=== PATIENT | male | born 1945 | race Caucasian/White ===

== ENCOUNTER → 2020-02-01 09:36 | Outpatient (CLI) | payer SELFPAY ==
--- NOTE | ~2020-02-01 | XR_ITS ---
EXAMINATION: XR cervical spine 4-5V EXAM DATE: 02/01/2020 10:33 INDICATION: Low back pain. Cervical spine surgery 3 years ago. TECHNIQUE: Cervical spine frontal, lateral, lateral swimmers, and open-mouth odontoid projections. There is no prior study for comparison. FINDINGS: Hardware along right mid lumbar lamina. Moderate disc disease from C3 through C7. Overall moderate cervical arthropathy. Prevertebral soft tissue and pre-dens space are within normal limits. Lung apices unremarkable. IMPRESSION: Moderate cervical spondylosis. Reviewed, dictated and finalized at location A.
--- NOTE | ~2020-02-01 | XR_ITS ---
EXAMINATION: XR lumbar spine 2-3V EXAM DATE: 02/01/2020 10:33 INDICATION: Low back pain. TECHNIQUE: Lumber spine frontal, lateral, lateral L5-S1 projections for interpretation. There is no prior study for comparison. FINDINGS: Some limitations from underpenetration. There is moderate disc disease L1-2, L3-4 and L4-5, moderate to severe at L5-S1. Probably moderate lumbar facet arthropathy. Small endplate bridging ost eophytes. Paraspinal soft tissue is unremarkable. There are arterial calcifications, arteriosclerosis . IMPRESSION: Overall moderate lumbar spondylosis. Reviewed, dictated and finalized at location A.
== END ==
DX: M54.5 Low back pain (principal); M47.812 Spondylosis without myelopathy or radiculopathy, cervical region; M47.816 Spondylosis without myelopathy or radiculopathy, lumbar region
CPT/HCPCS: 72050; 72100

== ENCOUNTER 2020-07-09 14:43 | Observation (INO) | payer MEDICARE, SELFPAY ==
[2020-07-09] VITALS (38 sets, daily range): BP systolic 112–140; BP diastolic 56–85; PULSE 64–84; RESP 12–20; TEMP 36.2–36.7; O2SAT 95–100; BMI 28.9
--- NOTE | ~2020-07-09 | US_ITS ---
EXAMINATION: US carotid duplex BI EXAM DATE: 07/10/2020 08:50 INDICATION: Syncope. TECHNIQUE: Grayscale, color and pulsed Doppler images of the cervical carotid arteries were obtained . The degree of vessel stenosis is placed in one of the following categories: normal, <50% stenosis, 50-69% stenosis, >=70% stenosis but less than near-occlusion, near-occlusion, or occlusion. Note that percent stenosis relative to normal distal artery lumen diameter is indirectly measured from velocit y measurements as described by Bolivar, et al. Radiology 2003; 229:340-346. There is no prior study fo r comparison. FINDINGS: RIGHT SIDE: Right common carotid artery peak systolic velocity (PSV in cm/s): 66 Right bulb/internal carotid artery peak systolic velocity (PSV in cm/s): 56 Right internal carotid artery end diastolic velocity (EDV in cm/s): 15 Right ICA/CCA peak systolic ratio: 0.8 Right external carotid artery peak systolic velocity (PSV in cm/s): 103 Right vertebral artery antegrade flow: yes There is mild carotid bulb plaque. Velocity and Doppler waveforms in the common and internal carotid arteries is normal. LEFT SIDE: Left common carotid artery peak systolic velocity (PSV in cm/s): 80 Left bulb/internal carotid artery peak systolic velocity (PSV in cm/s): 61 Left internal carotid artery end diastolic velocity (EDV in cm/s): 22 Left ICA/CCA peak systolic ratio: 0.8 Left external carotid artery peak systolic velocity (PSV in cm/s): 87 Left vertebral artery antegrade flow: yes There is mild carotid bulb plaque. Velocity and Doppler waveforms in the common and internal carotid arteries is normal. IMPRESSION: 1. Normal right internal carotid artery. 2. Less than 50 percent stenosis in the left internal carotid artery. Reviewed, dictated and finalized at location B. CLUB HEAD FORMER
--- NOTE | ~2020-07-09 | XR_ITS ---
XR chest 1V DATE: 07/09/2020 15:26 INDICATION: Shortness of breath, syncope. History of COPD, hypertension. TECHNIQUE: AP chest COMPARISON: 09/02/2018 2 view chest FINDINGS: Normal heart size. There is aortic calcification and mild tortuosity. No hilar or mediastin al enlargement. No pulmonary infiltrate or consolidation, pleural effusion or pulmonary vascular congestion or pneumo thorax. Diffuse osteopenia. Degenerative spurring of the thoracic spine. IMPRESSION: No active cardiopulmonary disease Reviewed, dictated and finalized at location A. ICAL ENGINEERING TECHNICIAN
--- NOTE | ~2020-07-09 | CT_ITS ---
EXAMINATION: CT brain wo con DATE: 07/09/2020 15:21 INDICATION: Syncope TECHNIQUE: Computed tomography (CT) of the head was performed without intravenous contrast. The mA wa s adjusted according to patient size. Iterative reconstruction technique was employed. Exam dose: 60 5.33 mGy-cm total exam DLP. COMPARISON: None FINDINGS: Bilateral carotid siphon and right supraclinoid internal carotid artery calcifications. There is nonspecific diminished attenuation of the subcortical and periventricular cerebral white mat ter, likely due to chronic small vessel ischemic changes. There is central and cortical cerebral volume loss and cerebellar volume loss. No intracranial mass lesion or hemorrhage or cerebrovascular accident is evident. No midline shift or mass effect effect. No subdural or epidural hematoma. There is a small fluid level or mild posterior new comparison thickening at the left maxillary sinus. The paranasal sinuses and mastoid air cells are otherwise unremarkable. No fracture or bone destruction of the cranial vault. IMPRESSION: Cerebral atherosclerosis and chronic small vessel ischemic changes of cerebral white mat ter Cerebral and cerebellar atrophy No acute intracranial finding Reviewed, dictated and finalized at Location A. Reviewed, dictated and finalized at location A. INING MANAGER IMPRESSION: Cerebral atherosclerosis and chronic small vessel ischemic changes of cerebral white matter Cerebral and cerebellar atrophy No acute intracranial finding
--- NOTE | 2020-07-09 14:52 | ECG_ITS ---
Measurements Intervals [place] Rate: 59 P: 70 WI: 177 QRS: 16 QRSD: 100 T: 72 QT: 405 QTc: 403 Interpretive Statements SINUS BRADYCARDIA INCOMPLETE RIGHT BUNDLE BRANCH BLOCK BORDERLINE ECG Electronically Signed On 07-09-2020 14:58:29 PUBLIC IMPROVEMENT INSPECTOR by Med Davis D.O.
--- NOTE | 2020-07-09 15:14 | ED.SYNCOPE ---
HPI - Syncope General Chief Complaint: Syncope Stated Complaint: syncope Time Seen by Provider: 07/09/20 14:49 Source: patient Mode of arrival: EMS Limitations: no limitations History of Present Illness HPI narrative: Patient is a 74 year old male with history of hypertension and hyperlipidemia who presents for EMS for syncopal episode. He states he was sitting down at [employer] when he developed nausea, dizziness, blurred vision and diaphoresis. He states his told him his eyes were rolling to the back of his head. He was given some glucose for possible hypoglycemia, and he states he started feeling better afterwards. He has not eaten all day. He states he normal has apple at breakfast and eats popcorn throughout the day but he has not eaten any. He denies chest pain or palpitations. He states he felt like he couldn't breath so he took down his mask. Prior to going to [employer], he states he felt fine. His only complaint now is mild nausea. He states he feels 98% better. He denies history of diabetes or hypoglycemia. Related Data Allergies Allergy/AdvReac Type Severity Reaction Status Date / Time Penicillins Allergy Unknown UNKNOWN Verified 07/09/20 15:22 Review of Systems Review of Systems: All systems reviewed & are unremarkable except as noted in HPI and below Constitutional: Constitutional: Denies chills and Denies fever(s) Cardiovascular: Cardiovascular: Denies chest pain and Denies radiating jaw, neck or arm pain Respiratory: Respiratory: Denies cough and Reports dyspnea Gastrointestinal: Gastrointestinal: Denies abdominal pain, Denies diarrhea, Reports nausea and Denies vomiting Neurologic: Reports syncope [facility] Past Medical History Medical History (Updated 07/09/20 @ 19:14 by Jeanne Campbell MD) Hyperlipidemia Hypertension Surgical History Surgical History (Updated 07/09/20 @ 15:22 by Jeanne Campbell MD) H/O cervical spine surgery History of ankle surgery Social History Social History (Updated 07/09/20 @ 15:23 by Jeanne Campbell MD) Smoking status: Never smoker Exam Const: General: no acute distress and alert Orientation/consciousness: patient oriented x3 HENMT: Head: normocephalic and atraumatic Face and sinus: face symmetric Eyes: EOM: EOMs intact bilaterally Chest: Chest palpation & inspection: normal inspection of the chest Resp: Effort & Inspection: normal respiratory effort and no retractions Auscultation: clear to auscultation bilaterally Cardio: Rate: regular rate Rhythm: regular rhythm Heart sounds: no murmurs GI: GI Palp: Yes Soft to palpation, No Tenderness to palpation present (GI) and No Guarding due to palpation present (GI) Auscultation: normal bowel sounds Skin: General skin exam: normal color Rashes: no rashes Neuro: General: patient oriented x3 and moves all extremities Course Reevaluation(s) Reevaluation #1: I discussed with patient that i recommend observation due to syncopal episode. It may be due to hypoglycemia but we do not have an accucheck to state that for sure. He understands he will be monitored for arrhythmia Date: 07/09/20 Time: 15:30 Consultations Consultation #1: I Discussed case with Princess Aj who accepts patient for observation given syncopal episode Date: 07/09/20 Time: 15:15 Vital Signs Vital signs: Vital Signs Temperature 98.0 F 07/09/20 14:42 Pulse Rate 64 07/09/20 14:42 Respiratory Rate 18 07/09/20 14:42 Blood Pressure 118/79 07/09/20 14:42 Pulse Oximetry 98 07/09/20 14:42 Temperature 98.0 F 07/09/20 14:42 Pulse Rate 70 07/09/20 18:49 Respiratory Rate 13 07/09/20 18:49 Blood Pressure 117/56 L 07/09/20 18:49 Pulse Oximetry 98 07/09/20 18:49 MDM - Syncope Lab Data Attestation: I reviewed the patient's lab results. Result diagrams: 07/09/20 15:51 07/09/20 15:51 Labs: Lab Results 07/09/20 07/09/20 07/09/20 Range/Units 15:51 15:51 15:5
[2020-07-09] MEDS: ONDANSETRON INJ 4 MG/2 ML VIAL IV PUSH (15:42)
[2020-07-09 15:58] LABS: Basophils Absolute Auto 0.1 K/mm3 (0.0-0.1); Basophils Percent Auto 0.5 % (0.2-1.2); Eosinophils Absolute Auto 0.2 K/mm3 (0-0.3); Eosinophils Percent Auto 2.2 % (0-4.4); Hematocrit 43.3 % (42.0-52.0); Immature Granulocyte Absolute 0.02 K/mm3 (0.00-0.031); Immature Granulocyte Percent A 0.2 % (0-0.5); Lymphocytes Absolute Auto 1.29 K/mm3 (0.9-3.2); Lymphocytes Percent Auto 14.1 % (18.3-44.2); Mean Corpuscular HGB Conc 34.6 g/dl (32-36); Mean Corpuscular Hemoglobin 31.6 pg (26-34); Mean Corpuscular Volume 91.2 fl (80-100); Mean Platelet Volume 9.3 fl (7.4-10.4); Monocytes Absolute Auto 0.6 K/mm3 (0.1-0.6); Monocytes Percent Auto 6.3 % (2.6-8.5); Neutrophils Percent Auto 76.7 % (45.5-73.1); Platelet Count Result 261 k/mm3 (150-375); Red Blood Count 4.75 M/mm3 (4.6-6.20); Red Cell Distribution Width 14.5 % (11.5-14.5); White Blood Count 9.2 K/mm3 (4.5-10.0)
[2020-07-09 16:01] LABS: Add Urine Microscopic? YES; Amorphous Sediment Urine Few; Appearance Urine Cloudy (Clear); Bilirubin Urine Negative (Negative); Blood Urine Negative (Negative); Color Urine Yellow (Yellow); Glucose Urine UA Negative (Negative); Ketones Urine Negative (Negative); Leukocyte Esterase Ur Negative LEU/UL (Negative); Mucus Urine Rare /lpf; Nitrate Urine Negative (Negative); Protein Urine Negative (Negative); RBC Urine 0-2 /hpf (0-2); Specific Grav Ur 1.013 (1.001-1.035); Squamous Epithelial Cell Urine Rare /hpf (Few); WBC Urine 0-3 /hpf
[2020-07-09 16:08] LABS: INR 0.9; Partial Thromboplastin Time 28.3 SECONDS (22.3-36.8); Prothrombin Time 12.9 Seconds (11.1-14.7)
[2020-07-09 16:11] LABS: Alanine Aminotransferase 32 U/L (4-50); Alkaline Phosphatase 81 U/L (38-126); Anion Gap 2 mmol/L (8-16); Aspartate Amino Transferase 32 U/L (17-59); Bilirubin,Total 0.9 mg/dL (0.2-1.3); Blood Urea Nitrogen 11 mg/dL (9-20); Calcium 8.9 mg/dL (8.4-10.2); Carbon Dioxide 27 mmol/L (22-30); Chloride 100 mmol/L (98-107); Estimated CRCL calculation 86 ml/min; Estimated Glomerular Filt Rate > 60; Glucose 127 mg/dL (75-110); Magnesium 1.7 mg/dL (1.6-2.3); Sodium 129 mmol/L (137-145)
[2020-07-09 16:22] LABS: Troponin I < 0.012 ng/mL (0.000-0.034)
--- NOTE | 2020-07-09 19:57 | ADMGEN ---
This patient, Domenico Spangler, was admitted to Medical Room 258-01. Patient/family oriented to hospital policies and general routines including ID bracelet, bed and alarms, visiting hours, pain management, procedures, bathroom and other care routines, personal items, smoking policy, room service/diet, and visiting hours. Information on how to activate the Rapid Response Team has been discussed. Patient/Family are encouraged to report perceived risks to care and to ask questions if they do not understand what they are told or what they should do.
[2020-07-09] MEDS: SODIUM CHLORIDE 0.9% IV 1,000 ML 125 ML IV CONT (21:25)
[2020-07-09 21:58] LABS: Glucose Point of Care 101 (65-105)
[2020-07-10] VITALS (8 sets, daily range): BP systolic 129–149; BP diastolic 73–88; PULSE 55–88; RESP 16–18; TEMP 36.1–36.3; O2SAT 98–99
--- NOTE | 2020-07-10 | PM.IMHP ---
H&P: HPI History of Present Illness Date/Time: 07/09/20 23:40 Chief Complaint: presyncopal episode today Narrative: This is a pleasant 74 year old male with known history of HTN and hyperlipidemia who presented to the hospital today after feeling woozy and having a presyncopal episode earlier today at [employer]. He didn't eat today and he was sitting at [employer] listening to a boring sermon when suddenly he became dizzy, diaphoretic, and woozy. He remarks that his vision went out of focus for a few moments and his noticed that he had become pale appearing and his eyes seemed to roll back in his head. He denies actually passing out, falling, or having any seizure like activity. Afterwards his identification printing machine setter gave him 2 glucose tablets to eat. The patient has no previous history of passing out and denies any recent head injury. The patient denied any chest pain, palpitations, shortness of breath, coughing, fevers, chills, abdominal pain, vomiting, diarrhea, dysuria, or rectal bleeding. EMS found that his blood glucose was 100 mg/dl after he had eaten the 2 tabs of glucose. The patient was evaluated in the ER tonight and routine labs, EKG, CXR were all unremarkable. The patient was admitted for observation. No other complaints. Review of Systems Review of Systems: All systems reviewed & are unremarkable except as noted in HPI and below PMFSH Past Medical History Medical History Hyperlipidemia Hypertension Surgical History Surgical History H/O cervical spine surgery History of ankle surgery Family History Family History Mother Diabetes mellitus Father Post-trauma syndrome Heart disease Father No problems noted. Social History Social History Years smoked: 60 Smoking status: Former smoker Tobacco type: cigarettes Alcohol intake: never Substance use: never Substance use type: does not use Gender identity (if verbalized by the patient): Male Spiritual care concerns: No Meds Home Medications and Allergies Home Medications Medication Instructions Recorded Confirmed Type aspirin 325 mg PO DAILY 07/09/20 07/09/20 History atorvastatin 40 mg PO DAILY 07/09/20 07/09/20 History lisinopril-hydrochlorothiazide 0.5 tablet PO DAILY 07/09/20 07/09/20 History Allergies Allergy/AdvReac Type Severity Reaction Status Date / Time Penicillins Allergy Unknown UNKNOWN Verified 07/09/20 15:22 Vital Signs Vital Signs - 24 hr 07/09/20 14:42 07/09/20 14:48 07/09/20 14:49 Temperature 36.7 C Pulse Rate 64 66 68 Respiratory Rate 18 19 Blood Pressure 118/79 118/79 Pulse Oximetry 98 97 99 07/09/20 14:51 07/09/20 15:00 07/09/20 15:01 Temperature Pulse Rate 68 66 68 Respiratory Rate 15 14 Blood Pressure 120/75 Pulse Oximetry 07/09/20 15:28 07/09/20 15:38 07/09/20 15:45 Temperature Pulse Rate Respiratory Rate Blood Pressure Pulse Oximetry 97 99 98 07/09/20 16:03 07/09/20 16:05 07/09/20 16:06 Temperature Pulse Rate 69 67 83 Respiratory Rate 14 Blood Pressure 132/68 132/68 133/81 Pulse Oximetry 100 98 07/09/20 16:07 07/09/20 16:11 07/09/20 16:16 Temperature Pulse Rate 74 65 66 Respiratory Rate 14 15 16 Blood Pressure 126/70 133/81 Pulse Oximetry 99 98 99 07/09/20 16:22 07/09/20 16:30 07/09/20 16:41 Temperature Pulse Rate 71 74 68 Respiratory Rate 14 16 13 Blood Pressure 112/62 112/66 Pulse Oximetry 100 99 100 07/09/20 16:45 07/09/20 17:00 07/09/20 17:15 Temperature Pulse Rate 64 65 64 Respiratory Rate 16 13 12 Blood Pressure Pulse Oximetry 98 100 99 07/09/20 17:31 07/09/20 17:41 07/09/20 17:45 Temperature Pulse Rate 66 71 73 Respiratory Rate 17 18 13 Blood Pressure 140/85 Pulse Oximetry 98 99 99
[2020-07-10] MEDS: SODIUM CHLORIDE 0.9% IV 1,000 ML 125 ML IV CONT (05:28)
[2020-07-10 05:38] LABS: Basophils Absolute Auto 0.1 K/mm3 (0.0-0.1); Basophils Percent Auto 0.8 % (0.2-1.2); Eosinophils Absolute Auto 0.3 K/mm3 (0-0.3); Eosinophils Percent Auto 4.6 % (0-4.4); Hematocrit 39.6 % (42.0-52.0); Hemoglobin 13.7 g/dL (14.0-18.0); Immature Granulocyte Absolute 0.02 K/mm3 (0.00-0.031); Immature Granulocyte Percent A 0.3 % (0-0.5); Lymphocytes Absolute Auto 1.83 K/mm3 (0.9-3.2); Lymphocytes Percent Auto 28.8 % (18.3-44.2); Mean Corpuscular HGB Conc 34.6 g/dl (32-36); Mean Corpuscular Hemoglobin 31.3 pg (26-34); Mean Corpuscular Volume 90.4 fl (80-100); Mean Platelet Volume 9.4 fl (7.4-10.4); Monocytes Absolute Auto 0.8 K/mm3 (0.1-0.6); Neutrophils Absolute Auto 3.4 K/mm3 (1.3-6.7); Neutrophils Percent Auto 53.5 % (45.5-73.1); Platelet Count Result 249 k/mm3 (150-375); Red Blood Count 4.38 M/mm3 (4.6-6.20); Red Cell Distribution Width 14.2 % (11.5-14.5); White Blood Count 6.4 K/mm3 (4.5-10.0)
[2020-07-10 05:46] LABS: Potassium 4.1 mmol/L (3.4-5.0)
[2020-07-10 05:52] LABS: Anion Gap 3 mmol/L (8-16); Blood Urea Nitrogen 9 mg/dL (9-20); Calcium 8.5 mg/dL (8.4-10.2); Carbon Dioxide 27 mmol/L (22-30); Chloride 105 mmol/L (98-107); Estimated CRCL calculation 82 ml/min; Estimated Glomerular Filt Rate > 60; Glucose 97 mg/dL (75-110); Sodium 135 mmol/L (137-145)
--- NOTE | 2020-07-10 06:00 | ECHO_ITS ---
Patient Info Name: Domenico Spangler Age: 74 years : 1945 Gender: Male Ht: 71 in Wt: 208 lbs BSA: 2.19 m2 HR: 73 bpm BP: 130 / 69 mmHg Heart Rhythm: Sinus Rhythm Technical Quality: Good Exam Date: 07/10/2020 9:34 AM Exam Location: [facility] Patient Status: Inpatient Admit Date: 07/09/2020 Staff Ordering Physician: Jeanne Campbell MD Senior Portfolio Manager: Damien Payton RDCS Attending Provider: Clarisa Avina PA-C Referring Physician: Adrian MENA; Exam Type: CA echo doppler color flow Study Info Indications R55 - Syncope and collapse Complete two-dimensional, color flow and Doppler transthoracic echocardiogram is performed. Strain analysis performed. History/Risk Factors Syncope; hypertension. Summary 1. Complete two-dimensional, color flow and Doppler transthoracic echocardiogram is performed. 2. Technically difficult study with limited views. 3. Left ventricular chamber dimension is normal. 4. Left ventricular systolic function is normal, estimated at 65-70%. 5. Right atrial chamber dimension is mildly enlarged. 6. There is mild aortic valve sclerosis. Left Ventricle Left ventricular chamber dimension is normal. Left ventricular systolic function is normal, estimated at 65-70%. The left ventricular diastolic function is grade I diastolic dysfunction. Right Ventricle Right ventricular chamber dimension is normal. Left Atria Left atrial chamber dimension is normal. Right Atria Right atrial chamber dimension is mildly enlarged. Aortic Valve The aortic valve is trileaflet. There is mild aortic valve sclerosis. Pulmonic Valve The pulmonic valve is not well visualized. Mitral Valve The mitral valve has normal leaflets. Tricuspid Valve The tricuspid valve leaflets are normal. There is mild tricuspid valve regurgitation. Pericardium/Pleural The pericardium appears normal. Aorta The aortic root size at the sinus of Valsalva is normal. Left Ventricular Outflow Tract Name Value Normal LVOT 2D LVOT Diameter 2.1 cm LVOT Doppler LVOT Peak Gradient 6 mmHg LVOT Mean Gradient 3 mmHg LVOT VTI 28 cm LVOT VTI/AV VTI Ratio 0.7 LVOT Stroke Volume 94 ml LVOT CO 7.2 l/min LVOT CI 3.3 l/min/m2 Mitral Valve Name Value Normal MV Doppler MV [employer] [place] 224 cm/s2 MV PHT 94 ms MV Area (PHT) 2.4 cm2 4.0-5.0 MV Diastolic Function MV E Peak Velocity 72 cm/s MV A Peak Velocity 94 cm/s
[2020-07-10 07:33] LABS: Glucose Point of Care 102 (65-105)
[2020-07-10] MEDS: ASPIRIN 325 MG TABLET PO (09:18)
[2020-07-10] MEDS: ATORVASTATIN 40 MG TABLET PO (09:18)
[2020-07-10 11:41] LABS: Glucose Point of Care 88 (65-105)
--- NOTE | 2020-07-10 16:51 | PM.DS ---
DS: Admitting Diagnosis Admitting Diagnosis Admitting Diagnosis: Pre-syncope DS: Discharge Diagnosis Discharge Diagnosis (1) Pre-syncope: Code(s): R55 - Syncope and collapse Status: Acute Assessment and Plan: Discharge Summary (Date of service 07/10/20): Mr. Spangler is a 74 year old male with known history of HTN and hyperlipidemia who presented to the emergency department 07/09/20 after feeling woozy and having a presyncopal episode earlier that morning at [facility]. He noted that he had not eaten all day and he was listening to the sermon at [facility] when he suddenly became dizzy, diaphoretic, and woozy. He noted that his vision went out of focus for a few moments and his noticed that he had become pale appearing and his eyes seemed to roll back in his head. He denies actually passing out, falling, or having any seizure like activity. Afterwards his pipe fitter maintenance gave him 2 glucose tablets to eat. EMS found that his blood glucose was 100 mg/dl after he had eaten the 2 tabs of glucose. In the ER, CXR demonstrated no acute disease, CT brain demonstrated cerebral atherosclerosis and chronic small vessel ischemic changes of cerebral white matter with cerebral and cerebellar atrophy and no acute intracranial finding, EKG demonstrated sinus bradycardia and incomplete right bundle branch block. The patient was admitted for observation. Carotid doppler US demonstrated no right ICA stenosis and <50% left ICA stenosis. Echocardiogram demonstrated normal LV chamber dimension, normal LV systolic function w/ EF 65-70%, mild right atrial enlargement, and mild aortic valve sclerosis. Telemetry monitoring demonstrated sinus rhythm. Orthostatic BP readings were negative for orthostatic hypotension. The episode was most likely secondary to hypoglycemia and he was advised not to miss meals. Additional consideration includes reflex-mediated vasovagal pre-syncope given classic prodrome. I also encouraged him to stay hydrated and take precautions to avoid falls. He was discharged with a holter monitor and encouraged to follow-up with his PCP for results. Worrisome signs and symptoms which would warrant return to the emergency department were discussed and he verbalized understanding. He was discharged in hemodynamically stable condition on the evening of 07/10/20. (2) Hyponatremia: Code(s): E87.1 - Hypo-osmolality and hyponatremia Status: Acute Assessment and Plan: Sodium was 129 on arrival to the emergency department and improved to 135 with IV fluids. HCTZ was held initially but resumed at discharge as hyponatremia was felt more likely secondary to dehydration as opposed to HCTZ. Recommend outpatient follow-up with BMP and consideration of discontinuing HCTZ if sodium levels drop in the future. (3) Hypertension: Qualifiers: Hypertension type: unspecified Qualified Code(s): I10 - Essential (primary) hypertension Code(s): I10 - Essential (primary) hypertension Status: Chronic Assessment and Plan: Blood pressures were reasonable. Lisinopril-HCTZ was resumed at discharge. (4) Hyperlipidemia: Qualifiers: Hyperlipidemia type: unspecified Qualified Code(s): E78.5 - Hyperlipidemia, unspecified Code(s): E78.5 - Hyperlipidemia, unspecified Status: Chronic Assessment and Plan: Atorvastatin was continued. DS: Summary Hospital Course Reason for hospitalization: Near syncope Hospital Course: As above. Status at Discharge Functional status at discharge: independent ambulation Overall status at discharge: patient is back to baseline Time Spent with Patient Time attestation: Total time spent providing and/or coordinating discharge services: 35 minutes Exam Narrative: Exam Narrative: Vitals at presentation: Temp Pulse Resp BP Pulse Ox 98.0 F 64 18
--- NOTE | 2020-07-13 15:09 | WPDHOLTEREM ---
Holter/Event Monitor Holter/Event Monitor Date of procedure: 07/13/20 Procedure Type: 48 hour Holter monitor Diagnosis: syncope Indications: syncope Image/Tracing Quality: good Finding: this is a 48 hour Holter monitor in which underlying rhythm was sinus with an average heart rate of 68 beats per minute minimum 46 beats per minute occurring at 4:20 a.m. and a maximum 117 beats per minute occurring at 7:41 a.m.. There was no ventricular ectopy noted throughout the study. One hundred nine supraventricular ectopic beats were noted in which there were 4 atrial runs longest of which was 10 beats in duration occurring at 2:27 a.m.. There were 2 atrial pairs and 83 isolated premature atrial contractions. There is no atrial fibrillation or atrial flutter, prolonged pauses or high-grade AV blocks identified. There were no symptoms returning conjunction with this study. Conclusion: Underlying sinus rhythm without prolonged pauses or high-grade AV blocks. Occasional asymptomatic runs of atrial tachycardia without atrial fibrillation or atrial flutter. Clinical correlation advised.
== END 2020-07-10 17:35 | disposition home or self-care (01) ==
LOC: ANHED 17:40 → ANH2MED 18:28
PROVIDERS: Physician Assistant; Admitting Provider Internal Medicine; Emergency Provider General Practice; PCP Family Medicine Adolescent Medicine; Visit Provider Family Medicine
DX: R55 Syncope and collapse (principal); E87.1 Hypo-osmolality and hyponatremia; I35.8 Other nonrheumatic aortic valve disorders; I65.22 Occlusion and stenosis of left carotid artery; I10 Essential (primary) hypertension; E78.5 Hyperlipidemia, unspecified; Z87.891 Personal history of nicotine dependence
CPT/HCPCS: 36415; 70450; 71045; 80048; 80053; 81001; 82948; 83735; 84484; 85025; 85610; 85730; 93005; 93225; 93226; 93306; 93880; 96361; 96374; 99285; A9270; G0378; J2405; J7030

== ENCOUNTER 2021-11-22 15:03 | Inpatient (IN) | payer MEDICARE, SELFPAY ==
[2021-11-22] VITALS (25 sets, daily range): BP systolic 94–153; BP diastolic 49–75; PULSE 70–86; RESP 12–16; TEMP 36.3–37.1; O2SAT 92–100; BMI 28.2
--- NOTE | ~2021-11-22 | XR_ITS ---
XR chest 1V DATE: 11/22/2021 15:38 INDICATION: Fall today. Comminuted intertrochanteric right hip fracture. Preoperative evaluation. TECHNIQUE: AP chest COMPARISON: 07/09/2020 AP chest FINDINGS: Normal heart size. Is aortic calcification and mild unfolding. No hilar or mediastinal enla rgement. No pulmonary infiltrate or consolidation, pleural effusion or pulmonary vascular congestion or pneumo thorax. Osteopenia. Degenerative spurring of the thoracic spine. IMPRESSION: No active cardiopulmonary disease Aortic atherosclerosis Reviewed, dictated and finalized at location A.
--- NOTE | ~2021-11-22 | US_ITS ---
EXAMINATION: US carotid duplex BI DATE: 11/23/2021 09:05 INDICATION: Carotid bruit. Preop. TECHNIQUE: Grayscale, color Doppler, and pulsed Doppler images of the cervical carotid arteries were obtained. The degree of vessel stenosis is placed in one of the following categories: normal, <50%, 5 0-69%, >=70% but less than near-occlusion, near-occlusion, or total occlusion. Note that percent sten osis relative to normal distal artery lumen diameter is indirectly measured from velocity measurement s as described by Bolivar, et al. Radiology 2003; 229:340-346. Notes: Normal: Peak systolic velocity <125 centimeters/sec and no plaque <50%. Peak systolic velocity <125 ( EDV <40; ICA/CCA PSV ratio <2.0; used these factors only a tandem lesions or low cardiac output or co ntralateral disease) 50-69 %: PSV 125-230 (EDV 40-100; ratio 2-4) >= 70% but less than near occlusion: PSV greater than 230 (EDV > 100; ratio> 4.0) Near Occlusion: PSV that is variable; markedly narrowed lumen Occlusion: Absent flow on color/spectral Doppler and no lumen on pierre scale. COMPARISON: None. FINDINGS: RIGHT: The right common carotid artery (CCA) peak systolic velocity (PSV) is 79 cm/s. The right internal car otid artery (ICA) PSV is 54 cm/s. The right ICA end-diastolic velocity (EDV) is 10 cm/s. The right IC A/CCA PSV ratio is 0.7. The external carotid artery (ECA) PSV is 101 cm/s. There is antegrade flow in the right vertebral artery. LEFT: The left CCA PSV is 74 cm/s. The left ICA PSV is 61 cm/s. The left ICA EDV is 13 cm/s. The left ICA/C CA PSV ratio is 0.8. The ECA PSV is 97 cm/s. There is antegrade flow in the left vertebral artery. IMPRESSION: 1. Less than 50% stenosis in the right internal carotid artery by sonographic criteria. 2. Less than 50% stenosis in the left internal carotid artery by sonographic criteria. Reviewed, dictated and finalized at location A. IMPRESSION: 1. Less than 50% stenosis in the right internal carotid artery by sonographic c caryeria. 2. Less than 50% stenosis in the left internal carotid artery by sonographic cr kike.
--- NOTE | ~2021-11-22 | XR_ITS ---
XR hip RT 2V w AP pelvis DATE: 11/22/2021 15:38 INDICATION: Fall today. External rotation and foreshortening of right leg TECHNIQUE: AP pelvis. AP and lateral views of right hip COMPARISON: None FINDINGS: There is a comminuted intertrochanteric fracture of the right hip with varus deformity. No pelvic fracture is noted. The pubic symphysis and sacroiliac joints are intact. Hip joint spaces are symmetric and relatively preserved. There is a prominent amount of fecal material in the colon. IMPRESSION: Comminuted intertrochanteric right hip fracture Reviewed, dictated and finalized at location A.
--- NOTE | ~2021-11-22 | XR_ITS ---
EXAMINATION: XR surgery orthopedic DATE: 11/24/2021 11:05 CDT INDICATION: RT IT NAIL . TECHNIQUE: 4 fluoroscopic images of the right hip were obtained during right intertrochanteric nail p lacement performed by the surgeon. I was not present in the operating room. Fluoroscopy exposure time was 406.2 seconds. Cumulative dose was 137.2 mGy. COMPARISON: None FINDINGS: 4 spot views demonstrate IT nail fixation of the abdomen intertrochanteric right hip fracture. IMPRESSION: Fluoroscopic documentation of right intertrochanteric nail placement. Reviewed, dictated and finalized at location K.
--- NOTE | 2021-11-22 15:44 | ECG_ITS ---
Measurements Intervals [place] Rate: 72 P: 75 VT: 176 QRS: 29 QRSD: 94 T: 72 QT: 397 QTc: 436 Interpretive Statements SINUS RHYTHM WITHIN NORMAL LIMITS COMPARED TO ECG 07/09/2020 14:48:36 NO SIGNIFICANT CHANGE Electronically Signed On 11-23-2021 14:27:09 CDT by Nakul Ritter M.D.
--- NOTE | 2021-11-22 15:52 | ED.FALL ---
HPI - Fall General Chief Complaint: Fall Stated Complaint: fall, Hip pain Time Seen by Provider: 11/22/21 15:08 History of Present Illness HPI Narrative: 76-year-old male presents to the ER today for evaluation of right hip pain after falling ground-level. He was walking out to get the mail and swatted at a wasp and lost his balance and fell over on his right side. He was not able to get up and had significant pain in the right hip. A neighbor happened to be outside and was able to call EMS right away. He was noted to have shortening and external rotation of the right leg. His pain is fairly controlled as long as he is not moving. He does get intermittent muscle cramps in his right hip which are very painful. Past medical history significant for hypertension and hyperlipidemia. Related Data Home Medications Medication Instructions Recorded Confirmed aspirin 325 mg tablet 325 mg PO DAILY 07/09/20 11/22/21 atorvastatin 40 mg tablet 40 mg PO DAILY 11/22/21 11/22/21 Allergies Allergy/AdvReac Type Severity Reaction Status Date / Time Penicillins Allergy Unknown UNKNOWN Verified 11/22/21 18:02 Review of Systems Review of Systems: CONSTITUTIONAL: Denies fever, chills, or sweats. EYES: Denies visual changes, redness, or discharge. ENT: Denies rhinorrhea, congestion, sore throat, or otalgia. CARDIOVASCULAR: Denies chest pain, palpitations, or edema. RESPIRATORY: Denies cough or dyspnea. GASTROINTESTINAL: Denies abdominal pain, nausea, vomiting, or diarrhea. GENITOURINARY: Denies dysuria or hematuria. SKIN: Denies rash or itching. MUSCULOSKELETAL: As per HPI NEUROLOGIC: Denies headache, numbness, dizziness, or weakness. PSYCHIATRIC: Denies anxiety or depression. [facility], [facility] Past Medical History Medical History Hyperlipidemia Hypertension Pre-syncope Syncope Surgical History Surgical History H/O cervical spine surgery History of ankle surgery Family History Family History Mother Diabetes mellitus Father Post-trauma syndrome Heart disease Father No problems noted. Social History Social History Years smoked: 60 Smoking status: Former smoker Tobacco type: cigarettes Second hand tobacco smoke exposure: No Alcohol intake: never Substance use: never Substance use type: does not use Gender identity (if verbalized by the patient): Male Sexual Orientation (if Verbalized by the Patient): Straight or Heterosexual Spiritual care concerns: No Agree to blood products: Yes Exam Narrative: GENERAL: Well-appearing, well-nourished, and in no acute distress. HEAD: Normocephalic, atraumatic. EYES: PERRLA and EOMI. NECK: Supple. CHEST: Clear to auscultation. No respiratory distress. No wheezes rales or rhonchi HEART: Regular rate and rhythm. No murmur heard. Normal peripheral pulses. ABDOMEN: Soft, nontender, nondistended, normal active bowel sounds. EXTREMITIES: Swelling noted right lateral hip, right leg shortened and externally rotated. SKIN: Warm, dry, no rash. NEURO: No focal deficits. Alert and oriented x3. PSYCH: Normal mood and affect. Course Course Emergency Course: 1615 Discussed with ortho, Dr. Charles, agrees to see patient in consultation, will plan to admit to hospitalist service. Vital Signs Vital signs: Vital Signs Temperature 36.3 C L 11/22/21 14:59 Pulse Rate 72 11/22/21 14:59 Respiratory Rate 16 11/22/21 14:59 Blood Pressure 138/71 11/22/21 14:59 Pulse Oximetry 97 11/22/21 14:59 Temperature 37.0 C 11/22/21 18:07 Pulse Rate 72 11/22/21 18:07 Respiratory Rate 12 11/22/21 18:07 Blood Pressure 153/61 H 11/22/21 18:07 Pulse Oximetry 94 11/22/21 18:07 MDM - Fall Lab Data Attestation: I reviewed t
[2021-11-22 16:19] LABS: Basophils Absolute Auto 0.1 K/mm3 (0.0-0.1); Basophils Percent Auto 0.8 % (0.2-1.2); Eosinophils Absolute Auto 0.2 K/mm3 (0-0.3); Eosinophils Percent Auto 3.2 % (0-4.4); Hemoglobin 13.5 g/dL (14.0-18.0); Immature Granulocyte Absolute 0.04 K/mm3 (0.00-0.031); Immature Granulocyte Percent A 0.5 % (0-0.5); Lymphocytes Percent Auto 16.5 % (18.3-44.2); Mean Corpuscular HGB Conc 33.8 g/dl (32-36); Mean Corpuscular Hemoglobin 30.6 pg (26-34); Mean Corpuscular Volume 90.7 fl (80-100); Monocytes Absolute Auto 0.6 K/mm3 (0.1-0.6); Monocytes Percent Auto 8.8 % (2.6-8.5); Neutrophils Absolute Auto 5.1 K/mm3 (1.3-6.7); Neutrophils Percent Auto 70.2 % (45.5-73.1); Platelet Count Result 222 k/mm3 (150-375); Red Blood Count 4.41 M/mm3 (4.6-6.20); Red Cell Distribution Width 14.7 % (11.5-14.5); White Blood Count 7.3 K/mm3 (4.5-10.0)
[2021-11-22 16:30] LABS: Alanine Aminotransferase 26 U/L (6-50); Alkaline Phosphatase 76 U/L (38-126); Anion Gap 6 mmol/L (8-16); Aspartate Amino Transferase 29 U/L (17-59); Bilirubin,Total 0.8 mg/dL (0.2-1.3); Blood Urea Nitrogen 12 mg/dL (9-20); Calcium 8.2 mg/dL (8.4-10.2); Carbon Dioxide 25 mmol/L (22-30); Chloride 100 mmol/L (98-107); Estimated CRCL calculation 105 ml/min; Estimated Glomerular Filt Rate > 60; Glucose 131 mg/dL (65-110); Potassium 3.6 mmol/L (3.4-5.0); Sodium 131 mmol/L (137-145)
[2021-11-22] MEDS: MORPHINE SULFATE (*CRX) 4 MG/ML INJ IV PUSH ×2 (16:56→18:59)
[2021-11-22] MEDS: ONDANSETRON INJ 4 MG/2 ML VIAL IV PUSH (16:57)
--- NOTE | 2021-11-22 17:15 | PM.IMHP ---
H&P: HPI History of Present Illness Date/Time: 11/22/21 17:15 Chief Complaint: Right hip pain after fall. Narrative: This is a very pleasant 76-year-old male with hypertension and hyperlipidemia presented to the emergency department via EMS from home for evaluation of right hip pain after a fall. Not long prior to arrival he walked outside to get the mail. He noticed a wasp nearby and swatted at it but unfortunately he lost his balance and fell hard onto his right hip. A neighbor happened to be outside at the time and they called EMS as he was unable to get himself up due to the pain. In the emergency department he was found to have a right hip fracture and he is being admitted in this setting. He also sustained a skin tear and abrasion to the right elbow but sustained no other injuries. He denies head trauma and loss of consciousness. There were no antecedent symptoms prior to the fall; it was purely mechanical. He has a chronic left footdrop which he states was not a factor in the fall today. At the time my evaluation he is resting comfortably but he reports that the pain is starting to increase once again. No paresthesias, skin color, or temperature changes distal to the fracture site. Review of Systems Review of Systems: Twelve systems were reviewed. No fever, chills, or sweats. No recent cold or flu symptoms. No history of coronary artery disease. No vertigo. Right carotid bruit noted on exam; no known history of carotid artery stenosis. No exertional chest pain or shortness of breath. No orthopnea, PND, or lower extremity edema. Appetite has been good. No nausea, vomiting, diarrhea, or dysuria. No history of venous thromboembolism. Except as documented, all other systems were reviewed and are negative. [facility] Past Medical History Medical History (Updated 11/22/21 @ 21:35 by Shara Sorto PA-C) Hyperlipidemia Hypertension Surgical History Surgical History (Updated 11/22/21 @ 21:35 by Shara Sorto PA-C) History of ankle surgery (2012) ORIF right ankle trimalleolar fracture with subsequent hardware removal. History of arthroscopy of left knee History of cervical spinal surgery (2017) Description a splint C3 through C6. History of elbow surgery History of vasectomy Family History Family History Mother Diabetes mellitus Father Post-trauma syndrome Heart disease Father No problems noted. Social History Social History (Updated 11/22/21 @ 21:39 by Shara Sorto PA-C) Social History: Surrogate decision maker: Lizzy Spangler, spouse. 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 Spiritual care concerns: No Agree to blood products: Yes Meds Home Medications and Allergies Home Medications Medication Instructions Recorded Confirmed Type aspirin 325 mg tablet 325 mg PO DAILY 07/09/20 11/22/21 History lisinopril 20 0.5 tablet PO DAILY #45 tabs 10/31/21 11/22/21 Rx mg-hydrochlorothiazide 25 mg tablet atorvastatin 40 mg tablet 40 mg PO DAILY 11/22/21 11/22/21 History Allergies Allergy/AdvReac Type Severity Reaction Status Date / Time Penicillins Allergy Unknown UNKNOWN Verified 11/22/21 18:02 Vital Signs Vital Signs - 24 hr 11/22/21 14:59 11/22/21 15:08 11/22/21 15:15 Temperature 97.4 F L Pulse Rate 72 Respiratory Rate 16 Blood Pressure 138/71 Pulse Oximetry 97 98 97 11/22/21 15:16 11/22/21 15:35 11/22/21 15:36 Temperature Pulse Rate 74 Respiratory Rate 16 Blood Pressure 125/64 132/75 Pulse Oximetry 98 98 98 11/22/21 15:37 11/22/21 15:45 11/22/21 1
--- NOTE | 2021-11-22 18:12 | ADMGEN ---
This patient, Domenico Spangler, was admitted to 2 Medical Room 255-01. Patient/family oriented to hospital policies and general routines including ID bracelet, bed and alarms, visiting hours, pain management, procedures, bathroom and other care routines, personal items, smoking policy, room service/diet, and visiting hours. Information on how to activate the Rapid Response Team has been discussed. Patient/Family are encouraged to report perceived risks to care and to ask questions if they do not understand what they are told or what they should do. Report received from RENATA Mcfadden.
[2021-11-22] MEDS: SODIUM CHLORIDE 0.9% IV 1,000 ML 125 ML IV CONT (18:38)
[2021-11-23] VITALS (8 sets, daily range): BP systolic 121–142; BP diastolic 57–73; PULSE 72–108; RESP 14–20; TEMP 36.6–37.3; O2SAT 91–98
[2021-11-23] MEDS: HYDROcodone/acetaminophen (*CRX) 5-325 MG TABLET 1 TAB PO ×2 (00:24→14:37)
[2021-11-23 05:52] LABS: Hematocrit 36.7 % (42.0-52.0); Hemoglobin 12.7 g/dL (14.0-18.0); Mean Corpuscular HGB Conc 34.6 g/dl (32-36); Mean Corpuscular Hemoglobin 30.9 pg (26-34); Mean Corpuscular Volume 89.3 fl (80-100); Mean Platelet Volume 9.5 fl (7.4-10.4); Platelet Count Result 222 k/mm3 (150-375); Red Blood Count 4.11 M/mm3 (4.6-6.20); Red Cell Distribution Width 14.6 % (11.5-14.5); White Blood Count 9.3 K/mm3 (4.5-10.0)
[2021-11-23 06:40] LABS: Anion Gap 4 mmol/L (8-16); Blood Urea Nitrogen 10 mg/dL (9-20); Calcium 8.4 mg/dL (8.4-10.2); Carbon Dioxide 25 mmol/L (22-30); Chloride 100 mmol/L (98-107); Estimated CRCL calculation 95 ml/min; Estimated Glomerular Filt Rate > 60; Glucose 100 mg/dL (65-110); Magnesium 1.7 mg/dL (1.6-2.3); Potassium 4.1 mmol/L (3.4-5.0); Sodium 129 mmol/L (137-145)
[2021-11-23 07:13] LABS: Thyroid Stimulating Hormone Reflex 0.853 uIU/mL (0.465-4.68)
--- NOTE | 2021-11-23 08:00 | ECHO_ITS ---
Patient Info Name: Domenico Spangler Age: 76 years : 1945 Gender: Male Ht: 72 in Wt: 208 lbs BSA: 2.21 m2 HR: 90 bpm BP: 125 / 63 mmHg Technical Quality: Poor Exam Date: 11/23/2021 1:00 PM Exam Location: [facility] Patient Status: Inpatient Admit Date: 11/22/2021 Staff Ordering Physician: Shara Sorto PA-C [employer] Mesh: Aldo Jimenez RDCS, RT Attending Provider: Nakul Velasco MD Referring Physician: Macario MCKENZIE; Exam Type: CA echo doppler color flow Study Info Indications I10 - Essential (primary) hypertension R01.1 - Cardiac murmur, unspecified Complete two-dimensional, color flow and Doppler transthoracic echocardiogram is performed. Strain analysis performed. Summary 1. Complete two-dimensional, color flow and Doppler transthoracic echocardiogram is performed. 2. Technically suboptimal study due to poor sonographic images. 3. Left ventricular chamber dimension is normal. 4. Left ventricular systolic function is normal, estimated at 60-65%. 5. The left ventricular diastolic function is grade I diastolic dysfunction. 6. E/e' 6 is not elevated. 7. Global longitudinal strain is abnormal at -11.6%. Left Ventricle Technically suboptimal study due to poor sonographic images. E/e' 6 is not elevated. Global longitudinal strain is abnormal at -11.6%. Left ventricular chamber dimension is normal. Left ventricular systolic function is normal, estimated at 60-65%. The left ventricular diastolic function is grade I diastolic dysfunction. Right Ventricle Right ventricular systolic function is normal based on normal TAPSE 3.3 cm. Right ventricular chamber dimension is not well visualized. Left Atria Left atrial chamber dimension is normal. Right Atria Right atrial chamber dimension is not well visualized. Aortic Valve The aortic valve is not well visualized. Cannot determine number of aortic valve leaflets. There is no aortic valve stenosis based on valve area and gradients. There is no aortic valve regurgitation. Pulmonic Valve There is no pulmonic regurgitation. Mitral Valve There is no mitral valve stenosis. There is no mitral valve regurgitation. Tricuspid Valve The tricuspid valve leaflets are not well visualized. There is no tricuspid valve regurgitation. Pericardium/Pleural There is no pericardial effusion. Inferior Vena Cava Normal inferior vena cava with >50% collapse upon inspiration consistent with normal right atrial pressure, 5 mmHg. Aorta The aortic root size at the sinus of Valsalva is not well visualized. Left Ventricular Outflow Tract Name Value Normal LVOT 2D LVOT Diameter 2.0 cm LVOT Doppler LVOT Peak Gradient 7 mmHg LVOT Mean Gradient 4 mmHg LVOT VTI 25 cm LVOT VTI/AV VTI Ratio 0.7 LVOT Stroke Volume 82 ml LVOT CO 7.3 l/min LVOT CI 3.3 l/min/m2 Mitral Valve
[2021-11-23] MEDS: MORPHINE SULFATE (*CRX) 2 MG/ML INJ IV PUSH ×2 (10:56→18:25)
--- NOTE | 2021-11-23 14:53 | PM.CNOR ---
Assessment and Plan Assessment and plan (1) Closed intertrochanteric fracture of right femur: Qualifiers: Encounter type: initial encounter Fracture alignment: displaced Qualified Code(s): S72.141A - Displaced intertrochanteric fracture of right femur, initial encounter for closed fracture Code(s): S72.141A - Displaced intertrochanteric fracture of right femur, initial encounter for closed fracture Status: Acute Assessment and Plan: History, exam and radiographs reviewed with the patient and family. The fracture type and injury as well as radiographs discussed with the patient and family. Operative and nonoperative treatment options reviewed.The patient elects for operative treatment. The patients questions were answered. The patient desires operative treatment. Discussed Right Intertrochanteric Nail. Risks of surgery including but not limited to neurovascular damage, wound complications, blood clot, pulmonary embolus, stroke, myocardial infarction, anesthetic risks up to and including were reviewed. Continued pain and possible dysfunction were explained. No guarantees were offered. The patient understands and wishes to proceed. Plan: Right Intertrochanteric Nail by Dr. Jasmine pending medical clearance NPO at midnight. Obtain consent. Pain control. Ice lateral hip. Bedrest. NWB (2) Foot drop, left: Code(s): M21.372 - Foot drop, left foot Status: Acute Assessment and Plan: Left drop foot at baseline. Does not wear brace. Will likely need to use orthotic brace for optimal postoperative PT and to prevent recurrent falls. Additional Plan Radiographs, history and physical reviewed with attending MD and consulted physician, Dr. Heriberto Jasmnie. Agrees with current plan of care. No further recommendations. History of Present Illness HPI Consult date: 11/23/21 Consult reason: fracture (Right Hip ) and low back pain Chief complaint: Right hip fracture Narrative: 76-year-old male admitted after a fall at home while going to get his mail from the mailbox. He reports that he was being attacked by a wasps and eventually fell and was unable to stand. He was brought to the emergency room by EMS. Radiographs of the right hip revealed intertrochanteric fracture. Orthopedic consult requested by the emergency room physician. Patient admitted to the medicine service. [facility] Past Medical History Medical History (Updated 11/23/21 @ 15:09 by NANCY Li) Foot drop, left Hyperlipidemia Hypertension Surgical History Surgical History History of ankle surgery (2012) ORIF right ankle trimalleolar fracture with subsequent hardware removal. History of arthroscopy of left knee History of cervical spinal surgery (2017) Description a splint C3 through C6. History of elbow surgery History of vasectomy Family History Family History Mother Diabetes mellitus Father Post-trauma syndrome Heart disease Father No problems noted. Social History Social History Social History: Surrogate decision maker: Lizzy Spangler, spouse. 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 Spiritual care concerns: No Agree to blood products: Yes Meds Home Medications and Allergies Home Medications Medication Instructions Recorded Confirmed Type aspirin 325 mg tablet 325 mg PO DAILY 07/09/20 11/22/21 History lisinopril 20 0.5 tablet PO DAILY #45 tabs 10/31/21 11/22/21 Rx mg-hydrochlorothiazi
--- NOTE | 2021-11-23 16:15 | PM.IMPN ---
Progress Note: A&P Assessment and Plan (1) Closed right hip fracture: Code(s): S72.001A - Fracture of unspecified part of neck of right femur, initial encounter for closed fracture Status: Acute Assessment and Plan: Patient has a comminuted IT fracture of the right hip secondary to mechanical fall. Seems to be at average risk for postoperative complications. He will be NPO at midnight for surgery for surgery tomorrow per Dr. Jasmine. 11/23/2021 interval history: status post fall and fracture of right hip seen by orthopedic service and patient is scheduled for ORIF tomorrow, patient had a carotid ultrasound and cardiac echo her essentially normal, states pain is controlled with medication, remained clinically stable will follow-up after the surgery. (2) Right carotid bruit: Code(s): R09.89 - Other specified symptoms and signs involving the circulatory and respiratory systems Status: Acute Assessment and Plan: Bruit verses radiation of murmur. Carotid Doppler ultrasounds and echocardiogram ordered. bilateral carotid ultrasound showed less than 50% stenosis, and cardiac echo is essentially normal. (3) Hypertension: Qualifiers: Hypertension type: unspecified Qualified Code(s): I10 - Essential (primary) hypertension Code(s): I10 - Essential (primary) hypertension Status: Chronic Assessment and Plan: Blood pressures were reviewed and they are stable. Continue lisinopril with close monitoring of blood pressures. (4) Hyperlipidemia: Qualifiers: Hyperlipidemia type: unspecified Qualified Code(s): E78.5 - Hyperlipidemia, unspecified Code(s): E78.5 - Hyperlipidemia, unspecified Status: Chronic Assessment and Plan: Continue statin; LFTs within normal limits. (5) Hyponatremia: Code(s): E87.1 - Hypo-osmolality and hyponatremia Status: Acute Assessment and Plan: Mild, chronic hyponatremia. Probably due to hydrochlorothiazide which has been placed on hold. Subjective Date/time seen: 11/23/21 16:15 Right hip pain after fall. Narrative: This is a very pleasant 76-year-old male with hypertension and hyperlipidemia presented to the emergency department via EMS from home for evaluation of right hip pain after a fall. Not long prior to arrival he walked outside to get the mail. He noticed a wasp nearby and swatted at it but unfortunately he lost his balance and fell hard onto his right hip. A neighbor happened to be outside at the time and they called EMS as he was unable to get himself up due to the pain. In the emergency department he was found to have a right hip fracture and he is being admitted in this setting. He also sustained a skin tear and abrasion to the right elbow but sustained no other injuries. He denies head trauma and loss of consciousness. There were no antecedent symptoms prior to the fall; it was purely mechanical. He has a chronic left footdrop which he states was not a factor in the fall today. At the time my evaluation he is resting comfortably but he reports that the pain is starting to increase once again. No paresthesias, skin color, or temperature changes distal to the fracture site. 11/23/2021 interval history: status post fall and fracture of right hip seen by orthopedic service and patient is scheduled for ORIF tomorrow, patient had a carotid ultrasound and cardiac echo her essentially normal, states pain is controlled with medication, remained clinically stable will follow-up after the surgery. Review of Systems Review of Systems: Twelve systems were reviewed. No fever, chills, or sweats. No recent cold or flu symptoms. No history of coronary artery disease. No vertigo. Right carotid bruit noted on exam; no known history of carotid artery stenosis. No exertional chest pain or shortness of breath. No orthopnea, PND, or lower extremity edema. Appetite has been good. No nausea,
[2021-11-24] VITALS (13 sets, daily range): BP systolic 122–147; BP diastolic 60–96; PULSE 74–91; RESP 16–22; TEMP 36.2–37.1; O2SAT 92–99
[2021-11-24] MEDS: HYDROcodone/acetaminophen (*CRX) 5-325 MG TABLET 1 TAB PO (00:30)
--- NOTE | 2021-11-24 06:31 | WPDANESEPP ---
Anes - Eval Pre Procedure Procedure: Operation Date: 11/24/21 10:00 Proposed Procedures p Intertrochanteric Nail Right Hip - Heriberto Jasmine MD Date/Time: 11/24/21 06:31 Pre Op Diagnosis: Right hip fracture Patient Data Age: 76 Gender: M Height: 1.83 m Weight: 95.6 kg Last Vital Signs Temp 98.6 F 11/24/21 01:06 Pulse 88 11/24/21 01:06 Resp 16 11/24/21 01:06 BP 138/71 11/24/21 01:06 Pulse Ox 93 11/24/21 01:06 O2 Del Method Nasal Cannula 11/23/21 19:35 O2 Flow Rate 1 11/23/21 19:35 Allergies Allergy/AdvReac Type Severity Reaction Status Date / Time Penicillins Allergy Unknown UNKNOWN Verified 11/22/21 18:02 Home Medications Medication Instructions Recorded Confirmed Type aspirin 325 mg tablet 325 mg PO DAILY 07/09/20 11/22/21 History lisinopril 20 0.5 tablet PO DAILY #45 tabs 10/31/21 11/22/21 Rx mg-hydrochlorothiazide 25 mg tablet atorvastatin 40 mg tablet 40 mg PO DAILY 11/22/21 11/22/21 History Laboratory Tests 11/23/21 11/23/21 11/23/21 05:29 05:29 09:18 Sodium 129 mmol/L L mmol/L (137-145) Potassium 4.1 mmol/L mmol/L (3.4-5.0) Chloride 100 mmol/L mmol/L (98-107) Carbon Dioxide 25 mmol/L mmol/L (22-30) Anion Gap 4 mmol/L L mmol/L (8-16) BUN 10 mg/dL mg/dL (9-20) Creatinine 0.60 mg/dL L mg/dL (0.7-1.3) Estim Creat Clear Calc 95 ml/min ml/min Estimated GFR > 60 (59 - ) Glucose 100 mg/dL mg/dL (65-110) Calcium 8.4 mg/dL mg/dL (8.4-10.2) Magnesium 1.7 mg/dL mg/dL (1.6-2.3) TSH (Reflex) 0.853 uIU/mL uIU/mL (0.465-4.68) Blood Type A Positive Antibody Screen Negative ECG: SINUS RHYTHM WITHIN NORMAL LIMITS COMPARED TO ECG 07/09/2020 14:48:36 NO SIGNIFICANT CHANGE Electronically Signed On 11-23-2021 14:27:09 CDT by Nakul Ritter M.D. Patient hx anesthesia problems: none Family hx anesthesia problems: none Results Review: All pre-operative results and documents have been reviewed as part of the pre-operative evaluation. REPLACED BY [facility] Past Medical History Medical History Chronic obstructive pulmonary disease, unspecified Closed intertrochanteric fracture of right femur Foot drop, left Hyperlipidemia Hypertension Hyponatremia Right carotid bruit Surgical History Surgical History History of ankle surgery (2012) ORIF right ankle trimalleolar fracture with subsequent hardware removal. History of arthroscopy of left knee History of cervical spinal surgery (2016) Description a splint C3 through C6. History of elbow surgery History of vasectomy Family History Family History Mother Diabetes mellitus Father Post-trauma syndrome Heart disease Father No problems noted. Social History Social History Social History: Surrogate decision maker: Lizzy Spangler, spouse. 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 Spiritual care concerns: No Agree to blood products: Yes Exam Day of Procedure 11/24/21 06:31 Patient weight: overweight
[2021-11-24 08:43] LABS: Hematocrit 36.9 % (42.0-52.0); Hemoglobin 12.6 g/dL (14.0-18.0); Mean Corpuscular HGB Conc 34.1 g/dl (32-36); Mean Corpuscular Hemoglobin 30.9 pg (26-34); Mean Corpuscular Volume 90.4 fl (80-100); Mean Platelet Volume 8.8 fl (7.4-10.4); Platelet Count Result 172 k/mm3 (150-375); Red Blood Count 4.08 M/mm3 (4.6-6.20); Red Cell Distribution Width 14.9 % (11.5-14.5); White Blood Count 6.5 K/mm3 (4.5-10.0)
[2021-11-24 10:00] LABS: Anion Gap 6 mmol/L (8-16); Blood Urea Nitrogen 12 mg/dL (9-20); Calcium 8.1 mg/dL (8.4-10.2); Carbon Dioxide 22 mmol/L (22-30); Chloride 100 mmol/L (98-107); Estimated CRCL calculation 111 ml/min; Estimated Glomerular Filt Rate > 60; Glucose 102 mg/dL (65-110); Potassium 4.3 mmol/L (3.4-5.0); Sodium 128 mmol/L (137-145)
--- NOTE | 2021-11-24 10:03 | WPDHPUPDATE1 ---
History and Physical Update Update Date/Time: 11/24/21 10:03 History and Physical has been reviewed, including an updated exam of the patient. There are NO changes in the patient's condition. Risks, benefits, and alternatives have been discussed and questions answered. Patient agrees to proceed with procedure.
[2021-11-24] MEDS: ceFAZolin 2 GM/D5W 50 ML 2 GM/50 ML BAG IVPB (10:15)
--- NOTE | 2021-11-24 10:32 | P.PNAN_ITS ---
Anes - Eval Final PreProcedure Day of Procedure 11/24/21 10:32 Patient weight: overweight Heart: regular rate and rhythm Lungs: clear to auscultation and normal air movement Airway: Mallampati scale class II Neurological: alert and oriented Last oral intake: >/= 8 hours ASA classification: III Emergent: yes Anesthetic plan: proceed Anesthesia type and monitoring: general LMA Results Review: All pre-operative results and documents have been reviewed as part of the pre- operative evaluation. Informed Consent: The patient's anesthetic plan and its attendant risks and benefits were discussed with the patient/family/POA. Questions were solicited and answers provided to the satisfaction of the patient/family/POA.
[2021-11-24] MEDS: TRANEXAMIC ACID 1,000 MG/10 ML AMPUL 1000 MG IV PUSH (10:49)
--- NOTE | 2021-11-24 12:02 | W.PM.PROC2 ---
Procedure Note - Detailed Date of Procedure 11/24/21 Pre-op Diagnosis Right intertrochanteric femur fracture Post-op Diagnosis Same Procedure Performed INSERTION IM LEON RIGHT HIP Surgeon Heriberto Jasmine MD Anesthesia General Description of Procedure THE PATIENT WAS TAKEN TO THE OPERATING ROOM AND PLACED ON A FRACTURE TABLE AFTER GIVEN GENERAL ANESTHESIA. THE RIGHT LOWER EXTREMITY WAS PLACED IN A TRACTION BOOT AND USING SOME TRACTION AND INTERNAL ROTATION THE INNER TROCHANTERIC FRACTURE WAS REDUCED TO ANATOMIC POSITION. NEXT THE RIGHT LOWER EXTREMITY WAS PREPPED AND DRAPED IN THE STERILE FASHION. AN INCISION WAS MADE PROXIMAL TO THE TIP OF THE GREATER TROCHANTER AND DISSECTION CONTINUED TILL THE TIP OF THE GREATER TROCHANTER WAS PALPATED. A GUIDE PIN WAS PLACED DOWN THE FEMORAL CANAL AND PAST THE FRACTURE SITE. THIS WAS CHECKED ON FLUOROSCOPY AND FOUND TO BE IN GOOD POSITION. AN INITIAL REAMER WAS USED TO REAM THE FEMORAL CANAL. A 10 BY 200 MM GAMMA LEON WAS INSERTED TILL THE CORRECT POSITION WAS IDENTIFIED ON XRAY. A GUIDE PIN WAS INSERTED THROUGH THE FEMORAL NECK AT [address] TILL IT REACHED THE TIP OF THE SUB CHONDRAL BONE SEEN ON XRAY. AFTER REAMING, LAG SCREW WAS INSERTED MEASURING 105 MM. XRAYS SHOWED IT TO BE IN GOOD POSITION. THE LAG SCREW WAS LOCKED PROXIMALLY WITH A LOCKING SCREW. NEXT A DISTAL LOCKING SCREW WAS PLACED ACROSS THE LEON AND WAS IN GOOD POSITION ON XRAY. THE TRACTION WAS RELEASED. THE WOUNDS WERE WASHED. THE DEEP FASCIA WAS REPAIRED WITH 0 VICRYL SUTURE, THE SUB CUTANEOUS LAYER WITH 2-0 VICRYL, AND THE SKIN WITH JETT. THE WOUNDS WERE WASHED AND THEN STERILE DRESSING WAS APPLIED. PATIENT WAS EXTUBATED AND SENT TO RECOVERY ROOM. Estimated Blood Loss 100 Urine Output 1,000 Complications No immediate complications Condition Stable Disposition PACU
[2021-11-24] MEDS: LACTATED RINGERS 1,000 ML 30 ML IV CONT (12:10)
[2021-11-24] MEDS: HYDROcodone/acetaminophen (*CRX) 7.5-325 MG TABLET 1 TAB PO ×2 (15:02→21:10)
[2021-11-24] MEDS: lisinopriL 10 MG TABLET PO (15:03)
--- NOTE | 2021-11-24 15:31 | PM.IMPN ---
Progress Note: A&P Assessment and Plan (1) Closed right hip fracture: Code(s): S72.001A - Fracture of unspecified part of neck of right femur, initial encounter for closed fracture Status: Acute Assessment and Plan: Patient has a comminuted IT fracture of the right hip secondary to mechanical fall. Seems to be at average risk for postoperative complications. He will be NPO at midnight for surgery for surgery tomorrow per Dr. Jasmine. 11/23/2021 interval history: status post fall and fracture of right hip seen by orthopedic service and patient is scheduled for ORIF tomorrow, patient had a carotid ultrasound and cardiac echo her essentially normal, states pain is controlled with medication, remained clinically stable will follow-up after the surgery. 11/24/2021 interval history: status post fall and fracture of right hip seen by orthopedic service and patient had ORIF today, patient states feeling much better denies any pain at rest, patient be seen by surgery service will have a physical therapy, patient had a carotid ultrasound and cardiac echo her essentially normal, states pain is controlled with medication, remained clinically stable will follow with the surgery. (2) Right carotid bruit: Code(s): R09.89 - Other specified symptoms and signs involving the circulatory and respiratory systems Status: Acute Assessment and Plan: Bruit verses radiation of murmur. Carotid Doppler ultrasounds and echocardiogram ordered. bilateral carotid ultrasound showed less than 50% stenosis, and cardiac echo is essentially normal. (3) Hypertension: Qualifiers: Hypertension type: unspecified Qualified Code(s): I10 - Essential (primary) hypertension Code(s): I10 - Essential (primary) hypertension Status: Chronic Assessment and Plan: Blood pressures were reviewed and they are stable. Continue lisinopril with close monitoring of blood pressures. (4) Hyperlipidemia: Qualifiers: Hyperlipidemia type: unspecified Qualified Code(s): E78.5 - Hyperlipidemia, unspecified Code(s): E78.5 - Hyperlipidemia, unspecified Status: Chronic Assessment and Plan: Continue statin; LFTs within normal limits. (5) Hyponatremia: Code(s): E87.1 - Hypo-osmolality and hyponatremia Status: Acute Assessment and Plan: Mild, chronic hyponatremia. Probably due to hydrochlorothiazide which has been placed on hold. Subjective Date/time seen: 11/24/21 15:11/24/2021 interval history: status post fall and fracture of right hip seen by orthopedic service and patient had ORIF today, patient states feeling much better denies any pain at rest, patient be seen by surgery service will have a physical therapy, patient had a carotid ultrasound and cardiac echo her essentially normal, states pain is controlled with medication, remained clinically stable will follow with the surgery. Exam Narrative: Patient is comfortable, NAD HEENT: eyes are clear and none icteric LUNGS: normal respiratory effort ABD: not distended Lower extremities: no edema SKIN: nonjaundiced Neuro: grossly intact. Objective Data Vital Signs Vital Signs: Vital Signs - 24 hr 11/23/21 17:50 11/23/21 19:35 11/23/21 20:35 Temperature 99 F 98.2 F Pulse Rate 95 108 H Respiratory Rate 20 16 Blood Pressure 136/66 142/71 H Pulse Oximetry 93 98 94 Oxygen Delivery Nasal Cannula Oxygen Flow Rate 1 11/24/21 01:06 11/24/21 04:00 11/24/21 08:00 Temperature 98.6 F 97.2 F L Pulse Rate 88 85 Respiratory Rate 16 20 Blood Pressure 138/71 137/66 Pulse Oximetry 93 98 93 Oxygen Delivery Nasal Cannula Oxygen Flow Rate 1 11/24/21 12:10 11/24/21 12:25 11/24/21 12:40 Temperature 97.6 F Pulse Rate 85 78 88 Respiratory Rate 20 18 16 Blood Pressure 124/89 136/74 144/96 H Pulse Oximetry 97 98 92 Oxygen Delivery Simple Face Mask Simple Face Ma
[2021-11-24] MEDS: diazePAM (*CRX) 5 MG TABLET PO (20:14)
[2021-11-25] VITALS (8 sets, daily range): BP systolic 104–126; BP diastolic 54–67; PULSE 67–87; RESP 12–20; TEMP 36.6–37.2; O2SAT 93–98
[2021-11-25] MEDS: HYDROcodone/acetaminophen (*CRX) 7.5-325 MG TABLET 1 TAB PO ×2 (05:01→08:08)
[2021-11-25 05:10] LABS: Basophils Percent Auto 0.3 % (0.2-1.2); Eosinophils Percent Auto 0.1 % (0-4.4); Hematocrit 32.8 % (42.0-52.0); Hemoglobin 11.2 g/dL (14.0-18.0); Immature Granulocyte Absolute 0.02 K/mm3 (0.00-0.031); Immature Granulocyte Percent A 0.2 % (0-0.5); Lymphocytes Absolute Auto 1.35 K/mm3 (0.9-3.2); Lymphocytes Percent Auto 14.6 % (18.3-44.2); Mean Corpuscular HGB Conc 34.1 g/dl (32-36); Mean Corpuscular Hemoglobin 30.9 pg (26-34); Mean Corpuscular Volume 90.4 fl (80-100); Mean Platelet Volume 9.4 fl (7.4-10.4); Monocytes Absolute Auto 1.2 K/mm3 (0.1-0.6); Monocytes Percent Auto 13.2 % (2.6-8.5); Neutrophils Absolute Auto 6.6 K/mm3 (1.3-6.7); Neutrophils Percent Auto 71.6 % (45.5-73.1); Platelet Count Result 173 k/mm3 (150-375); Red Blood Count 3.63 M/mm3 (4.6-6.20); Red Cell Distribution Width 14.6 % (11.5-14.5); White Blood Count 9.2 K/mm3 (4.5-10.0)
[2021-11-25 05:29] LABS: Anion Gap 2 mmol/L (8-16); Blood Urea Nitrogen 11 mg/dL (9-20); Calcium 7.9 mg/dL (8.4-10.2); Carbon Dioxide 27 mmol/L (22-30); Chloride 100 mmol/L (98-107); Estimated CRCL calculation 95 ml/min; Estimated Glomerular Filt Rate > 60; Glucose 102 mg/dL (65-110); Potassium 3.9 mmol/L (3.4-5.0); Sodium 129 mmol/L (137-145)
[2021-11-25] MEDS: hydroCHLOROthiazide 12.5 MG CAPSULE PO (08:00)
[2021-11-25] MEDS: CELECOXIB 200 MG CAPSULE PO (08:00)
[2021-11-25] MEDS: ASPIRIN 325 MG TABLET PO (08:00)
[2021-11-25] MEDS: lisinopriL 10 MG TABLET PO (08:00)
[2021-11-25] MEDS: SENNA/DOCUSATE SODIUM TABLET 2 TAB PO ×2 (08:04→16:13)
--- NOTE | 2021-11-25 09:16 | WPDANESPN ---
Anes - Prog Note Post-Op Date/Time: 11/25/21 09:16 Vital Signs: Last Vital Signs Temp 36.6 C 11/25/21 06:45 Pulse 80 11/25/21 06:45 Resp 20 11/25/21 06:45 BP 126/66 11/25/21 06:45 Pulse Ox 98 11/25/21 07:55 O2 Del Method Nasal Cannula 11/25/21 07:55 O2 Flow Rate 1.5 11/25/21 07:55 Pain Score (VAS): 0 I/O: Intake & Output 11/24/21 11/25/21 11/25/21 23:59 07:59 15:59 Intake Total 290 550 Output Total 475 900 Balance -185 -350 Laboratory Tests 11/25/21 05:03 11/25/21 05:03 11/24/21 11/25/21 11/25/21 09:12 05:03 05:03 WBC 9.2 RBC 3.63 L Hgb 11.2 L Hct 32.8 L MCV 90.4 MCH 30.9 MCHC 34.1 RDW 14.6 H Plt Count 173 MPV 9.4 Immature Gran % (Auto) 0.2 Neut % (Auto) 71.6 Lymph % (Auto) 14.6 L [place] % (Auto) 13.2 H Eos % (Auto) 0.1 Baso % (Auto) 0.3 Lymph # (Auto) 1.35 [place] # (Auto) 1.2 H Eos # (Auto) 0.0 Baso # (Auto) 0.0 Abs Immat Gran (auto) 0.02 Absolute Neuts (auto) 6.6 Absolute Nucleated RBC 0.0 Nucleated RBC % 0.0 Sodium 128 L 129 L Potassium 4.3 3.9 Chloride 100 100 Carbon Dioxide 22 27 Anion Gap 6 L 2 L BUN 12 11 Creatinine 0.50 L 0.60 L Estim Creat Clear Calc 111 95 Estimated GFR > 60 > 60 Glucose 102 102 Calcium 8.1 L 7.9 L Magnesium 2.0 Patient Feedback: Patient satisfied with anesthetic care.
--- NOTE | 2021-11-25 11:16 | PM.IMPN ---
Progress Note: A&P Assessment and Plan (1) Closed right hip fracture: Code(s): S72.001A - Fracture of unspecified part of neck of right femur, initial encounter for closed fracture Status: Acute Assessment and Plan: Status post repair. Doing well. Pain is controlled. (2) Right carotid bruit: Code(s): R09.89 - Other specified symptoms and signs involving the circulatory and respiratory systems Status: Acute Assessment and Plan: Bruit verses radiation of murmur. Carotid Doppler ultrasounds and echocardiogram ordered. bilateral carotid ultrasound showed less than 50% stenosis, and cardiac echo is essentially normal. (3) Hypertension: Qualifiers: Hypertension type: unspecified Qualified Code(s): I10 - Essential (primary) hypertension Code(s): I10 - Essential (primary) hypertension Status: Chronic Assessment and Plan: Blood pressures were reviewed and they are stable. Continue lisinopril with close monitoring of blood pressures. (4) Hyperlipidemia: Qualifiers: Hyperlipidemia type: unspecified Qualified Code(s): E78.5 - Hyperlipidemia, unspecified Code(s): E78.5 - Hyperlipidemia, unspecified Status: Chronic Assessment and Plan: Continue statin; LFTs within normal limits. (5) Hyponatremia: Code(s): E87.1 - Hypo-osmolality and hyponatremia Status: Acute Assessment and Plan: Mild, chronic hyponatremia. Probably due to hydrochlorothiazide which has been placed on hold. Subjective Date/time seen: 11/25/21 11:16 Pain controlled Exam Narrative: Patient is comfortable, NAD HEENT: eyes are clear and none icteric LUNGS: normal respiratory effort ABD: not distended Lower extremities: no edema SKIN: nonjaundiced Neuro: grossly intact. Objective Data Vital Signs Vital Signs: Vital Signs - 24 hr 11/24/21 12:10 11/24/21 12:25 11/24/21 12:40 Temperature 97.6 F Pulse Rate 85 78 88 Respiratory Rate 20 18 16 Blood Pressure 124/89 136/74 144/96 H Pulse Oximetry 97 98 92 Oxygen Delivery Simple Face Mask Simple Face Mask Room Air Oxygen Flow Rate 6 6 11/24/21 12:55 11/24/21 13:30 11/24/21 13:45 Temperature 98 F 97.9 F Pulse Rate 86 91 79 Respiratory Rate 18 22 H 20 Blood Pressure 125/86 132/80 122/68 Pulse Oximetry 95 92 95 Oxygen Delivery Room Air Oxygen Flow Rate 11/24/21 14:15 11/24/21 15:15 11/24/21 15:00 Temperature 98.2 F 98.7 F Pulse Rate 82 80 Respiratory Rate 20 22 H Blood Pressure 147/81 H 129/60 Pulse Oximetry 93 95 Oxygen Delivery Nasal Cannula Oxygen Flow Rate 1 11/24/21 20:00 11/24/21 21:28 11/25/21 06:45 Temperature 97.6 F 97.9 F Pulse Rate 80 74 80 Respiratory Rate 22 H 20 20 Blood Pressure 129/68 126/66 Pulse Oximetry 95 99 98 Oxygen Delivery Nasal Cannula Oxygen Flow Rate 2 11/25/21 03:05 11/25/21 07:55 Temperature 97.9 F Pulse Rate 72 Respiratory Rate 18 Blood Pressure 121/67 Pulse Oximetry 96 98 Oxygen Delivery Nasal Cannula Oxygen Flow Rate 1.5 Intake/Output Intake/Output: Intake & Output 11/22/21 11/23/21 11/24/21 11/25/21 23:59 23:59 23:59 23:59 Intake Total 790 590 600 Output Total 530 2625 900 Balance 260 -1663 -300 Meds/Results Medications: Active Medications Generic Name Dose Route Start Last Admin Trade Name Freq PRN Reason Stop Dose Admin Acetaminophen 650 mg 11/24/21 13:20 Acetaminophen 325 Mg Tablet PO Q6H PRN Mild Pain (1-3) or Fever Hydrocodone Bitart/Acetaminophen 1 tab 11/24/21 13:20 11/25/21 08:08 Hydrocodone/Acetaminophen (*Crx) 7.5-325 Mg Tablet PO 1 tab Q3H PRN Administration Pain Rated 4-6 Aspirin 325 mg 11/25/21 09:00 11/25/21 08:00 Aspirin 325 Mg Tablet PO 325 mg DAILY GLADYS Administration Celecoxib 200 mg 11/25/21 08:00 11/25/21 08:00 Celecoxib 200 Mg Capsule PO 200 mg DAILY@0800 [facility]
[2021-11-25] MEDS: diazePAM (*CRX) 5 MG TABLET PO (20:49)
[2021-11-26 02:19] VITALS: BP 128/63; PULSE 80; RESP 18; TEMP 36.4; O2SAT 97
[2021-11-26 06:00] VITALS: BP 122/65; PULSE 83; RESP 18; TEMP 36.5; O2SAT 96
[2021-11-26] MEDS: ACETAMINOPHEN 325 MG TABLET 650 MG PO (06:32)
[2021-11-26 07:17] VITALS: O2SAT 91
[2021-11-26] MEDS: CELECOXIB 200 MG CAPSULE PO (08:02)
[2021-11-26] MEDS: lisinopriL 10 MG TABLET PO (08:02)
[2021-11-26] MEDS: hydroCHLOROthiazide 12.5 MG CAPSULE PO (08:02)
[2021-11-26] MEDS: ASPIRIN 325 MG TABLET PO (08:02)
--- NOTE | 2021-11-26 10:19 | PM.DS ---
DS: Admitting Diagnosis Discharge Date 11/26/2021 Admitting Diagnosis Hip fracture DS: Discharge Diagnosis Discharge Diagnosis (1) Closed right hip fracture: Code(s): S72.001A - Fracture of unspecified part of neck of right femur, initial encounter for closed fracture Status: Acute Assessment and Plan: Status post repair. Doing well. Pain is controlled. (2) Right carotid bruit: Code(s): R09.89 - Other specified symptoms and signs involving the circulatory and respiratory systems Status: Acute Assessment and Plan: Bruit verses radiation of murmur. Carotid Doppler ultrasounds and echocardiogram ordered. bilateral carotid ultrasound showed less than 50% stenosis, and cardiac echo is essentially normal. (3) Hypertension: Qualifiers: Hypertension type: unspecified Qualified Code(s): I10 - Essential (primary) hypertension Code(s): I10 - Essential (primary) hypertension Status: Chronic Assessment and Plan: Blood pressures were reviewed and they are stable. Continue lisinopril with close monitoring of blood pressures. (4) Hyperlipidemia: Qualifiers: Hyperlipidemia type: unspecified Qualified Code(s): E78.5 - Hyperlipidemia, unspecified Code(s): E78.5 - Hyperlipidemia, unspecified Status: Chronic Assessment and Plan: Continue statin; LFTs within normal limits. (5) Hyponatremia: Code(s): E87.1 - Hypo-osmolality and hyponatremia Status: Acute Assessment and Plan: Mild, chronic hyponatremia. Probably due to hydrochlorothiazide which has been placed on hold. DS: Summary Hospital Course Hospital Course: see plan and diagnosis Time Spent with Patient Time attestation: Total time spent providing and/or coordinating discharge services: Exam Narrative: Patient is comfortable, NAD HEENT: eyes are clear and none icteric LUNGS: normal respiratory effort ABD: not distended Lower extremities: no edema SKIN: nonjaundiced Neuro: grossly intact. Discharge Plan Discharge Attending physician on discharge: Nakul Velasco Consulting providers: Heriberto Jasmine Discharging Clinician: Nakul Velasco Patient Disposition: Home Health Service Activity: may shower, no driving and follow weight bearing status Diet: as tolerated Wound Care Instructions: follow printed instructions Discharge Instructions: Hip Fracture Instructions Dr. Heriberto Jasmine [phone] Your dressing will be changed prior to your discharge. You will be sent home with one additional dressing to be changed on post op day 7 by the correction facility RN. You may remove the dressing on post op day 14. Your incision was closed with garret. Garret to be removed on the 14th day after surgery. Continue full strength Aspirin per Dr. Jasmine. No further DVT prevention recommended per Dr. Jasmine. You may shower with your dressing but do not submerge in a bath tub. Do not drive or operate machinery until you are released by Dr. Jasmine. Do not walk without a walker for any reason until you are released by Dr. Jasmine. PROTECTED WEIGHT BEARING Continue to apply ice to the hip intermittently for additional pain relief. Protect your skin with a towel or pillow case. Continue to follow strict hip precautions. Please contact our office with any questions/concerns regarding your hip at [phone]. Patient Instructions: Antibiotic Form Stand Alone Forms: General Discharge Information Follow-up/Referrals: Heriberto Jasmine MD [Physician] - 01/04/22 10:15 am Discharge Medications: New hydrocodone-acetaminophen 7.5-325 mg Tablet 1 tablet PO Q4-6H PRN (Reason: pain) Qty: 56 0RF sennosides-docusate sodium [Senokot-S] 8.6-50 mg Tablet 2 tablet PO BID 30 Days Qty: 120 0RF Continued atorvastatin 40 mg tablet 40 mg PO DAILY aspirin 325 mg Tablet 325 mg PO
--- NOTE | 2021-11-26 11:45 | PC.NURSE ---
Changed dressing on right hip after patient showered. Gave an additional dressing to patient .
--- NOTE | 2021-11-26 12:06 | PM.PNORT ---
Progress Note: A&P Assessment and Plan (1) Closed intertrochanteric fracture of right femur: Qualifiers: Encounter type: initial encounter Fracture alignment: displaced Qualified Code(s): S72.141A - Displaced intertrochanteric fracture of right femur, initial encounter for closed fracture Code(s): S72.141A - Displaced intertrochanteric fracture of right femur, initial encounter for closed fracture Status: Acute Assessment and Plan: POD#2: INSERTION IM LEON RIGHT HIP Continue PT/OT. PWB. Walker. HIGH FALL RISK. Continue pain control. Ice hip. Protect skin. DVT prophylaxis with Aspirin per Dr. Jasmine. SCDs. Incentive Spirometry Use reviewed. Monitor Dressing. Change prior to discharge. Bowel Regimen. Dispo: SNF pending progress with PT/OT (2) Foot drop, left: Code(s): M21.372 - Foot drop, left foot Status: Acute Assessment and Plan: Recommended use of foot drop brace which patient owns for the LLE to prevent falls with PT/OT. Subjective Subjective Date/Time Seen: 11/26/21 12:06 Post Op day: 2 (INSERTION IM LEON RIGHT HIP) Interval history: POD#2: INSERTION IM LEON RIGHT HIP Patient doing well with PT/OT. Pain well controlled. No new concerns. Review of Systems Review of Systems: All systems reviewed & are unremarkable except as noted in HPI and below Exam Const: General: comfortable and no acute distress Resp: Effort & Inspection: normal respiratory effort Cardio: Rate: regular rate Rhythm: regular rhythm GI: Inspection: non-distended Skin: General skin exam: normal color Other: Incision right hip c/d/i. Surrounding tissue without redness/warmth. Mild swelling consistent with recent surgery. No drainage. Neuro: Cognition (Neuro): normal cognition Speech: normal speech Extrem: Right lower extremity: normal to inspection, normal capillary refill, hip/thigh Details: tenderness Location: of the hip (Thigh soft ) Location: laterally and anteriorly, swelling Location: at the hip, abnormal ROM (limited consistent with recent surgery ) Details: pain with active ROM during and pain with passive ROM during and other (Incision c/d/i. ); no deformity and no unusual warmth, knee Details: normal to inspection; no tenderness and no swelling, lower leg (Negative Will's Sign ) Details: normal to inspection and no edema; no tenderness, ankle (+ankle dorsiflexion/plantarflexion) Details: normal to inspection and no edema; no tenderness, no swelling and no ecchymosis and foot Details: normal capillary refill, toes with normal ROM, vascular exam Details: dorsalis pedis pulse present and motor-sensory exam Details: light-touch normal; no tenderness Objective Data Vital Signs Vital Signs: Vital Signs - 24 hr 11/25/21 14:00 11/25/21 19:00 11/25/21 21:28 Temperature 36.6 C 37.2 C Pulse Rate 67 84 Respiratory Rate 20 12 Blood Pressure 110/66 124/67 Pulse Oximetry 94 94 93 Oxygen Delivery Nasal Cannula Oxygen Flow Rate 2 11/25/21 22:00 11/26/21 02:19 11/26/21 07:17 Temperature 36.6 C 36.4 C Pulse Rate 82 80 Respiratory Rate 16 18 Blood Pressure 119/58 L 128/63 Pulse Oximetry 94 97 91 Oxygen Delivery Oxygen Flow Rate 11/26/21 06:00 Temperature 36.5 C Pulse Rate 83 Respiratory Rate 18 Blood Pressure 122/65 Pulse Oximetry 96 Oxygen Delivery Oxygen Flow Rate Intake/Output Intake/Output: Intake & Output 11/23/21 11/24/21 11/25/21 11/26/21 23:59 23:59 23:59 23:59 Intake Total 657 511 8349 840 Output Total 530 5445 1600 950 Balance 260 -2035 -50 -110 Meds/Results Medications: Active Medications Generic Name Dose Route Start Last Admin Trade Name Freq PRN Reason Stop Dose Admin Acetaminophen 650 mg 11/24/21 13:20 11/26/21 06:32 Acetaminophen 325 Mg Tablet PO 650 mg Q6H PRN Administration Mild Pain (1-3) or Fever Hydrocodone Bitart/Acetaminophen 1 tab 11/24/21 13:20 11/25/21 08:08 Hydrocodone/A
== END 2021-11-26 12:21 | disposition home health service (06) | DRG 481 ==
LOC: ANHED 15:22 → ANH2MED 17:06
PROVIDERS: Family Medicine; Orthopaedic Surgery; Physician Assistant; Admitting Provider Chiropractor; Emergency Provider Nurse Practitioner Family; PCP Family Medicine Adolescent Medicine; Visit Provider Chiropractor
PROC: 0QS634Z Reposition Right Upper Femur with Internal Fixation Device, Percutaneous Approach (ICD-10-PCS; CPT 27245; principal; 2021-11-24 10:00)
DX: S72.141A Displaced intertrochanteric fracture of right femur, initial encounter for closed fracture (principal); E87.1 Hypo-osmolality and hyponatremia; T50.2X5A Adverse effect of carbonic-anhydrase inhibitors, benzothiadiazides and other diuretics, initial encounter; R09.89 Other specified symptoms and signs involving the circulatory and respiratory systems; I10 Essential (primary) hypertension; E78.5 Hyperlipidemia, unspecified; M21.372 Foot drop, left foot; S50.311A Abrasion of right elbow, initial encounter; S51.011A Laceration without foreign body of right elbow, initial encounter; W18.30XA Fall on same level, unspecified, initial encounter; Z87.891 Personal history of nicotine dependence
CPT/HCPCS: 36415; 71045; 73502; 80048; 80053; 83735; 84443; 85025; 85027; 86850; 86900; 86901; 93005; 93306; 93880; 97110; 97112; 97116; 97162; 97165; 97530; 97535; 99285; A9270; C1713; J0690; J1100; J2270; J2405; J2704; J3010; J7030; J7120

== ENCOUNTER 2025-04-15 08:04 | Emergency (ER) | payer MEDICARE, SELFPAY ==
[2025-04-15] VITALS (23 sets, daily range): BP systolic 124–153; BP diastolic 71–94; PULSE 66–107; RESP 11–27; TEMP 36.7; O2SAT 96–100
--- NOTE | ~2025-04-15 | XR_ITS ---
Examination: XR chest 1V portable Clinical History: congestion; mild tachycardia at home Comparison: None Technique: Portable AP Findings: Heart size normal. Lungs clear. No acute bony abnormality. IMPRESSION: 1. No acute cardiopulmonary findings given portable technique. Reviewed, dictated and finalized at location R. ROPATHIC PHYSICIAN
--- NOTE | ~2025-04-15 | CT_ITS ---
EXAMINATION: CT brain wo con, 04/15/2025 9:05 DATA BASE DESIGN ANALYST HISTORY: MORIN, woozneymar COMPARISON: No comparisons available. Technique: Axial images obtained of the brain without contrast. One or more of the following dose reduction techniques were used: automated exposure control, adjustment of the mA and/or kV according to patient size, use of iterative reconstruction technique. Findings: No acute infarct or parenchymal hemorrhage. No abnormal mass or mass effect. No midline shift. No extra-axial fluid collections. No hydrocephalus. Mastoid air cells unremarkable. Sinuses and orbits unremarkable. No acute fracture. No significant facial or scalp soft tissue swelling evident. No radiopaque foreign body is seen. Impression: 1.No acute intracranial abnormality. Reviewed, dictated and finalized at location P. BASE DESIGN ANALYST Impression: 1.No acute intracranial abnormality.
--- NOTE | 2025-04-15 09:05 | ECG_ITS ---
Test Date: 2025-04-15 09:19:14 Measurements Intervals [place] Rate: 71 P: 68 ID: [id number] QRS: -7 QRSD: 76 T: 56 QT: 350 QTc: 383 Interpretive Statements SINUS RHYTHM n Electronically Signed On 04-15-2025 10:06:48 [employer] by Merritt Quintero D.O
[2025-04-15 10:01] LABS: Influenza A QL RT-PCR Negative (Negative); Influenza B QL RT-PCR Negative (Negative); RSV RNA, RT-PCR Negative (Negative); SARS-CoV-2 RNA PCR Negative (Negative)
--- NOTE | 2025-04-15 10:15 | ED_ITS ---
HPI - Headache General Chief Complaint: Headache Stated Complaint: REPORTED ELEVATED HEART RATE WOOZY Time Seen by Provider: 04/15/25 08:58 Source: patient Mode of arrival: ambulatory Limitations: no limitations History of Present Illness HPI Narrative: Patient presents with concern for an elevated heart rate and blood pressure. 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 He notes his heart rate is typically in the 60s but he did note it was elevated today, 93 and then 103. He has had a mild headache for several weeks and some chest and sinus congestion with phlegm which has caused him to feel woozy. 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 Has a nasal spray Rx. His BP normally is 110s/60s but it was 139/90 when he checked. Denies taking any other OTC sinus congestion med. History of hypertension for which he takes HCTZ and has a dose of an ARB which he takes prn with holding parameters. No dose changes recently. No chest pain or shortness of breath. No vision changes such as curtain defect, blurred or double vision, flashes/floaters. No trauma. No anticoagulation other than 325mg ASA. Does not see a media specialist. His PCP is Dr Hamm . Headache is w/o photophobia or phonophobia. It occurs across his bilateral frontal forehad and back of head, no temporal territory. No eye pain. Lives with his daughter; no one with similar symptoms. No palpitations or feeling like heart racing. No neck pain. Has not taken any medications at home for the mild headache including no OTC meds. Related Data Home Medications ?Medication ?Instructions ?Recorded ?Confirmed ?Last Taken ?Type aspirin 325 mg tablet 325 mg PO DAILY 07/09/2011/22/21 09:00 History Allergies Allergy/AdvReac Type Severity Reaction Status Date / Time Penicillins Allergy Unknown UNKNOWN Verified 04/15/25 08:05 lisinopril AdvReac Intermediate Cough Verified 04/15/25 08:05 [facility] Past Medical History Medical History Wears glasses Foot drop, left Closed intertrochanteric fracture of right femur Right carotid bruit Chronic obstructive pulmonary disease, unspecified Hyponatremia Hyperlipidemia Hypertension Surgical History Surgical History History of elbow surgery History of arthroscopy of left knee History of vasectomy History of cervical spinal surgery (2017) Description a splint C3 through C6. History of ankle surgery (2012) ORIF right ankle trimalleolar fracture with subsequent hardware removal. Family History Family History Mother Diabetes mellitus Father Post-trauma syndrome Heart disease Father No problems noted. Social History Social History Social History: Surrogate decision maker: Lizzy Spangler, spouse. Code status: Smoking packs per day: 2 Smoking cigarettes per day: 40.0 Years smoked: 60 Smoking pack-years: 120.00 Tobacco type: cigarettes Second hand tobacco smoke exposure: No Smoking end date: 08/31/18 Alcohol intake: never Substance use: never Substance use type: does not use Lack of Transportation: No Lack of Food: Never True Current Housing: I Have Housing Concerned About Future Housing: No Difficulty Paying Gas/Electric Bills: No Difficulty Paying for Meds: No Currently Unemployed: No Education: Master's Degree or Higher Difficulty w/ Childcare or Family Care: No Living arrangements: with family Additional living arrangements comments: daughter Occupation/Education: retired Additional occupation/education comments: Interesting and distinguished career. 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 Spiritual care concerns: No Agree to blood products: Yes Exam 2 Narrative: GENERAL: Well-appearing, well-nourished, and in no acute distress. HEAD: Normocephalic, atraumatic. EYES: Non injected, non icteric. PERRL. No APD. EOMI. ENT: Nares clear, no rhinorrhea or epistaxis. Gross auditory acuity intact. NECK: Supple. No meningismus. Full ROM. CHEST: Speaking in full sentences. No respiratory distress. HEART: Regular rate and rhythm. . ABDOMEN: Soft, nondistended. No rigidity or guarding. Not peritoneal EXTREMITIES: Normal range of motion. No lower extremity edema. SKIN: Warm, dry, no rash. NEURO: No focal deficits. Alert and oriented. Answering questions. Following commands. Normal speech without aphasia or dysarthria. PSYCH: Normal mood and affect. Course Vital Signs Vital signs: Vital Signs Temperature 98.1 F 04/15/25 08:22 Pulse Rate 93 04/15/25 08:22 Respiratory Rate 15 04/15/25 08:22 Blood Pressure 132/73 04/15/25 08:22 Pulse Oximetry 98 04/15/25 08:22 Oxygen Delivery Room Air 04/15/25 08:22 Temperature 98.1 F 04/15/25 08:22 Pulse Rate 67 04/15/25 13:25 Respiratory Rate 18 04/15/25 13:25 Blood Pressure 145/72 H 04/15/25 12:01 Pulse Oximetry 100 04/15/25 12:01 Oxygen Delivery Room Air 04/15/25 08:22 MDM - Headache MDM Narrative Medical decision making narrative: Exceedingly pleasant 79yo M presents with concern for relatively elevated HR and BP. 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 Heart rate had been 103 although typically in the 60s. Also BP normally 110s/60s but 139/90 at home. Has been having a mild headache and sinus congestion but not using any new meds including OTC. Has been taking antihypertensives as prescribed which include an ARB that he takes PRN with holding parameters. After obtaining the patient's history and performing a physical exam, the headache is most likely due to benign etiology. The neurological examination is non-focal, there are no high-risk features on history, vital signs are stable (within normal limits, afebrile), and the patient is non-toxic appearing. The Ddx for the patient's headache is tension headache, migraine, or other headache of non-emergent etiology. Unlikely SAH: headache is non-thunderclap. Headache present for several weeks Unlikely subdural/epidural hematoma: no history of trauma, no anticoagulation other than ASA Unlikely meningitis: afebrile, no meningismus, no photophobia Unlikely temporal arteritis: pt >60 years old but No tenderness in temporal area Unlikely acute angle glaucoma: PERRL, no eye pain Unlikely carbon monoxide poisoning: no other house members with similar symptoms CT and viral swab negative. CBC with abnormalities on the differential but otherwise without leukocytosis anemia, thrombocytopenia. Mild hyponatremia; previous reviewed and normal. Orthostatic vital signs are reviewed and shows that he does becomes tachycardic the especially relative to others. Will give fluid bolus and reassess. Similar repeat orthostats; 2nd fluid bolus ordered. The patient's headache was treated symptomatically with acetaminophen. Patient is reassessed at 12:40 p.m. he reports being asymptomatic during both orthostatic vital sign assessments. He states he feels great. Reasonable to discharge. Advised to follow up with their PCP. We had an extensive discussion of hypertension/relative hypertension and that a log with data (though not checking excessively) can help a PCP guide therapy but that end organ damage has been assessed as part of ED visit. Patient verifies understanding and is amenable with the plan. Advised that OTC analgesics can be used and provided RX. Lab Data Attestation: I reviewed the patient's lab results. 04/15/25 09:19 04/15/25 09:19 Labs: Lab Results 04/15/25 04/15/25 Range/Units 09:19 12:22 WBC 5.4 (4.5-10.0) K/mm3 RBC 4.78 (4.6-6.20) M/mm3 Hgb 14.7 D (14.0-18.0) g/dL Hct 43.5 (42.0-52.0) % MCV 91.0 (80-100) fl MCH 30.8 (26-34) pg MCHC 33.8 (32-36) g/dl RDW 14.8 H (11.5-14.5) % Plt Count 257 (150-375) k/mm3 MPV 10.4 (7.4-10.4) fl Immature Gran % (Auto) 0.2 (0-0.5) % Neut % (Auto) 56.1 (45.5-73.1) % Lymph % (Auto) 24.6 (18.3-44.2) % Hendricks % (Auto) 10.2 H (2.6-8.5) % Eos % (Auto) 7.6 H (0-4.4) % Baso % (Auto) 1.3 H (0.2-1.2) % Lymph # (Auto) 1.33 (0.9-3.2) K/mm3 Hendricks # (Auto) 0.6 (0.1-0.6) K/mm3 Eos # (Auto) 0.4 H (0-0.3) K/mm3 Baso # (Auto) 0.1 (0.0-0.1) K/mm3 Abs Immat Gran (auto) 0.01 (0.00-0.031) K/mm3 Absolute Neuts (auto) 3.0 (1.3-6.7) K/mm3 Absolute Nucleated RBC 0.000 (0.0-0.012) K/mm3 Nucleated RBC % 0.0 (0.0-0.2) % Sodium 134 L (137-145) mmol/L Potassium 3.9 (3.4-5.0) mmol/L Chloride 101 (98-107) mmol/L Carbon Dioxide 25 (22-30) mmol/L Anion Gap 8 (4-12) mmol/L BUN 6 L D (9-20) mg/dL Creatinine 0.71 (0.7-1.3) mg/dL Estim Creat Clear Calc 75 ml/min Estimated GFR > 60 (59 - ) Glucose 104 (65-110) mg/dL Calcium 9.1 (8.4-10.2) mg/dL Total Bilirubin 1.0 (0.2-1.3) mg/dL AST 33 (17-59) U/L ALT 25 (6-50) U/L Alkaline Phosphatase 87 (38-126) U/L Total Protein 6.9 (6.3-8.2) g/dL Albumin 4.1 (3.5-5.1) g/dL Urine Color Yellow (Yellow) Urine Appearance Clear (Clear) Urine pH 8.0 (5.0-9.0) Ur Specific [place] 1.009 (1.001-1.035) Urine Protein Negative (Negative) mg/dL Urine Glucose (UA) Negative (Negative) mg/dL Urine Ketones Negative (Negative) mg/dL Ur Blood (Man) Negative (Negative) Urine Nitrate Negative (Negative) Urine Bilirubin Negative (Negative) Urine Urobilinogen 1.0 (<2.0) mg/dL Leukocyte Esterase Rfl Negative (Negative) ATIF/UL Influenza A (RT-PCR) Negative (Negative) Influenza B (RT-PCR) Negative (Negative) RSV (RT-PCR) Negative (Negative) SARS-CoV-2 RNA (RT-PCR) Negative (Negative) Imaging Data Radiologist's impression: Impression: 1.No acute intracranial abnormality. IMPRESSION: 1. No acute cardiopulmonary findings given portable technique. ECG Data EKG #1: Attestation: I personally reviewed and interpreted this ECG as follows: ECG completion date: 04/15/25 ECG completion time: 09:19 Interpretation: Normal sinus rhythm at a rate of 71 beats per minute. KS interval 177. QRS 76. QT/QTC 350/383. Good R-wave progression across the precordial leads. No T- wave inversion. Discharge Plan Discharge Clinical Impression: Reassurance provided, Mild headache Patient Disposition: Home Condition: Stable Instructions: Antibiotic Form, Normal Exam (ED), General Headache (ED) Additional Instructions: As we discussed, I recommend you continue to keep a log of your blood pressure and heart rate measurements and take these to a follow-up appointment with your primary care physician. This data will help them determine if any changes are necessary with your antihypertensive regimen. In the interim continue taking medications as prescribed. Return to the emergency department any new or worsening symptoms. Acetaminophen/Tylenol (maximum 4000 mg per day) is safe to take with NSAIDs (ibuprofen/Motrin) for pain relief. Patient Language: Luxembourger Prescriptions: New ibuprofen 600 mg tablet 600 mg PO TID PRN (Reason: pain) Qty: 30 0RF acetaminophen 500 mg capsule 1,000 mg PO Q6H PRN (Reason: pain) Qty: 30 0RF No Action ipratropium bromide 42 mcg (0.06 %) spray,non-aerosol 2 spray intranasal TID PRN (Reason: postnasal drainage) Qty: 15 5RF Rx Instructions: administer into each nostril aspirin 325 mg Tablet 325 mg PO DAILY hydrochlorothiazide 25 mg tablet 25 mg PO DAILY Qty: 90 2RF valsartan 320 mg tablet 320 mg PO DAILY Qty: 90 2RF atorvastatin 40 mg tablet See Rx Instructions .ROUTE .COMPLEX Qty: 90 2RF Dose Instruction: TAKE 1 TABLET BY MOUTH EVERY DAY Rx Instructions: TAKE 1 TABLET BY MOUTH EVERY DAY Follow-up/Referrals: Javed Rick MD [Primary Care Provider, [facility]] Time of Disposition: 12:47
[2025-04-15 10:52] LABS: Hematocrit 43.5 % (42.0-52.0); Hemoglobin 14.7 g/dL (14.0-18.0); Immature Granulocyte Percent A 0.2 % (0-0.5); Lymphocytes Absolute Auto 1.33 K/mm3 (0.9-3.2); Mean Corpuscular HGB Conc 33.8 g/dl (32-36); Mean Corpuscular Hemoglobin 30.8 pg (26-34); Mean Corpuscular Volume 91.0 fl (80-100); Nucleated Red Blood Cells Absolute Auto 0.000 K/mm3 (0.0-0.012); Nucleated Red Blood Cells Perc 0.0 % (0.0-0.2); Platelet Count Result 257 k/mm3 (150-375); Red Blood Count 4.78 M/mm3 (4.6-6.20); White Blood Count 5.4 K/mm3 (4.5-10.0)
[2025-04-15 11:00] LABS: Alanine Aminotransferase 25 U/L (6-50); Albumin Level 4.1 g/dL (3.5-5.1); Alkaline Phosphatase 87 U/L (38-126); Anion Gap 8 mmol/L (4-12); Aspartate Amino Transferase 33 U/L (17-59); Bilirubin,Total 1.0 mg/dL (0.2-1.3); Blood Urea Nitrogen 6 mg/dL (9-20); Calcium 9.1 mg/dL (8.4-10.2); Carbon Dioxide 25 mmol/L (22-30); Chloride 101 mmol/L (98-107); Estimated CRCL calculation 75 ml/min; Estimated Glomerular Filt Rate > 60; Glucose 104 mg/dL (65-110); Potassium 3.9 mmol/L (3.4-5.0); Sodium 134 mmol/L (137-145); Total Protein 6.9 g/dL (6.3-8.2)
[2025-04-15] MEDS: ACETAMINOPHEN 500 MG TABLET 1000 MG PO (11:06)
[2025-04-15] MEDS: SODIUM CHLORIDE 0.9% IV 500 ML 999 ML IV CONT (11:19)
[2025-04-15 12:30] LABS: Add Urine Microscopic? NO; Appearance Urine Clear (Clear); Glucose Urine UA Negative (Negative); Leukocyte Esterase Ur Negative LEU/UL (Negative); Nitrate Urine Negative (Negative); Specific Grav Ur 1.009 (1.001-1.035)
[2025-04-15] MEDS: SODIUM CHLORIDE 0.9% IV 1,000 ML 999 ML IV CONT (12:47)
== END 2025-04-15 13:40 | disposition home or self-care (01) ==
PROVIDERS: Emergency Provider Student in an Organized Health Care Education/Training Program; PCP Family Medicine Adolescent Medicine
DX: R51.9 Headache, unspecified (principal); Z20.822 Contact with and (suspected) exposure to COVID-19; I10 Essential (primary) hypertension; E78.5 Hyperlipidemia, unspecified; J44.9 Chronic obstructive pulmonary disease, unspecified; M21.372 Foot drop, left foot; Z87.891 Personal history of nicotine dependence; Z79.82 Long term (current) use of aspirin; Z79.899 Other long term (current) drug therapy
CPT/HCPCS: 36415; 70450; 71045; 80053; 81003; 85025; 87637; 93005; 96360; 99284; A9270; J7030; J7040